=== PATIENT | male | born 1955 | race Hispanic/Latino ===

== ENCOUNTER 2019-01-01 10:13 | Inpatient (IN) | payer MEDICARE, BC ==
[~2019-01-01] VITALS: Ht 167.6 cm; Wt 102.5 kg
--- OUTSIDE RECORDS SUMMARY | 2019-01-01 10:17 | XMS REPORT ---
Author Author [facility] Address Unknown Phone Unavailable Care Team Providers Care Booster Operator Name Role Phone Unavailable Unavailable Payers Payer Name Policy Type Policy Number Effective Date Expiration Date Problems This patient has no known problems. Allergies, Adverse Reactions, Alerts Allergy Name Allergy Type Status Severity Reaction(s) Onset Date Inactive Date Treating Clinician Comments No Known Drug Allergies DA Active U 2018-12-31 00:00:00 No Known Drug Allergies DA Active U 2010-07-12 00:00:00 Medications This patient has no known medications. Results Test Description Test Time Test Comments Text Results Atomic Results Result Comments - XR FLUORO FOR SPINE INJ 2018-12-31 09:00:00 Patient Name: MARCY MO Unit No: [id number] EXAMS: CPT CODE: [id number] XR FLUORO FOR SPINE INJ 57835 LUMBAR TRANSFORAMINAL INJECTION REFERRING PHYSICIAN: PREOPERATIVE DIAGNOSIS: Degenerative Lumbar Disc Disease. POSTOPERATIVE DIAGNOSIS: Bilateral lumbar radiculopathy PROCEDURES PERFORMED 1. Fluoroscopically guided needle localization of the bilateral L4, bilateral L5 spinal nerve/nerves with transforaminal epidural steroid injection/injections. 2. Transforaminal epidurogram/epidurograms at bilateral L4, bilateral L5. FINDINGS: Poor filling bilateral L4, bilateral L5. Concordant provocation left L5 hip, right L4. Pain relief-100%. ANTIBIOTIC: Cefazolin ESTIMATED BLOOD LOSS: Minimal ANESTHESIA: (TIVA )Total intravenous anesthetic (patient intolerant to sedatives and hypnotics) COMPLICATIONS: None DETAILS OF PROCEDURE: After obtaining stable vital signs, informed consent and IV access, with no known contraindications to proceeding, the patient was taken to the fluoroscopy suite and placed in a prone position with all extremities padded and appropriate monitors placed. A sterile prep and drape was performed over the lumbosacral spine. Using fluoroscopic visualization at each level the insertion site was marked for a paravertebral approach to the foramen. Using standard technique, a 25 gauge needle was advanced to the base of the pedicle. In AP view, final positioning was obtained outside the 6 on the clock position on the pedicle. Then, 1 ml of Isovue-300 contrast was injected to produce the epidurograms. No paresthesias were elicited with needle insertion or injection and there were no signs of intravascular or intrathecal uptake. Then, with 1 ml of 4% lidocaine and 10 mg of triamcinolone was injected incrementally with frequent negative aspirations. There were no signs of intravascular or intrathecal uptake. Each subsequent level was done using the same technique and medications. The patient's vital signs remained stable. The patient was taken to the PACU in good condition. at 0900 Reported and signed by: Leo Hidalgo M.D. [facility] NAME: MOMARCY Doty [address] [facility] PHYS: MYRIAM - Leo Hidalgo MD [place], [place] [address] : 1955 AGE: 63 SEX: M LOC: RahulMERY PHONE #: [phone] EXAM DATE: 12/31/2018 [place]: [place] [facility] [place]: [phone] RAD #: D/C DT PAGE 1 Signed Report (CONTINUED) Patient Name: MARCY MO Unit No: [id number] EXAMS: CPT CODE: [id number] XR FLUORO FOR SPINE INJ [id number] <Continued> CC: Landon Au MD; Leon Ball MD Technologist: Aysha Lopez(R) Transcribed D/ (0900) [email or web address] [facility] NAME: MOMARCY Doty [address] [facility] PHYS: Leo Baeza MD [place], [place] [address] : 1955 AGE: 63 SEX: M LOC: MIGUEL PHONE #: [phone] EXAM DATE: 12/31/2018 STATUS: [facility] [place]: [phone] RAD #: D/C DT PAGE 2 Signed Report Patient Name: MARCY MO Unit No: [id number] EXAMS: CPT CODE: [id number] XR FLUORO FOR SPINE INJ [id number] <Continued> Orig Print D/T: S: 12/31/2018 (0904) [facility] NAME: MARCY MO [address] [facility] PHYS: DOCMASON - Doctor,Leo Estes MD [place], [place] [address] : 1955 AGE: 63 SEX: M LOC: MIGUEL PHONE #: [phone] EXAM DATE: 12/31/2018 [place]US: [facility] [place]: [phone] RAD #: D/C DT PAGE 3 Signed Report
--- OUTSIDE RECORDS SUMMARY | 2019-01-01 10:17 | XMS REPORT | Clinical Summary ---
Author Author [facility] Organization [facility] Address Unknown Phone Unavailable Care Team Providers Care Engineering Drafter Name Role Phone Wali Upton MD PCP Unavailable Allergies No Known Allergies Medications End Date Status Medication Sig Dispensed Refills Start Date Active simvastatin (ZOCOR) 20 MG Take 20 mg by 0 tablet mouth nightly. Active lisinopril Take 1 tablet 90 tablet 0 (PRINIVIL,ZESTRIL) 30 mg (30 mg total) 8 tablet by mouth daily. Active sertraline (ZOLOFT) 100 TAKE ONE 90 tablet 0 201 MG tablet TABLET BY 8 MOUTH DAILY 08/16/2019 Active meloxicam (MOBIC) 15 mg Take 1 tablet 30 tablet 0 tablet (15 mg total) 8 by mouth daily. Active tamsulosin (FLOMAX) 0.4 Take 1 90 capsule 3 mg capsule capsule (0.4 8 mg total) by mouth daily. Active traZODone (DESYREL) 100 TAKE ONE 90 tablet 0 201 MG tablet TABLET BY 9 MOUTH EVERY NIGHT AT BEDTIME 03/11/2018 Discontinued lisinopril Take 30 mg by 0 (PRINIVIL,ZESTRIL) 30 mg mouth daily. tablet 03/11/2018 Discontinued sertraline (ZOLOFT) 50 MG Take 50 mg by 0 tablet mouth daily. 03/11/2018 Discontinued traZODone (DESYREL) 50 MG Take 50 mg by 0 tablet mouth nightly. 03/18/2018 Discontinued methylPREDNISolone follow 21 tablet 0 (MEDROL DOSEPAK) 4 mg package 8 tablet directions 04/10/2018 tiZANidine (ZANAFLEX) 4 Take 1 tablet 20 tablet 0 MG tablet (4 mg total) 8 by mouth every 8 (eight) hours as needed for muscle spasms for up to 30 days. 05/20/2018 Discontinued traZODone (DESYREL) 50 MG Take 1 tablet 90 tablet 0 tablet (50 mg total) 8 by mouth nightly. 08/13/2018 Discontinued sertraline (ZOLOFT) 100 Take 1 tablet 90 tablet 0 MG tablet (100 mg 8 total) by mouth daily. 07/13/2018 Discontinued dextromethorphan-guaifene Take 1 tablet 28 each 0 sin (MUCINEX DM) 30-600 by mouth 2 8 mg tablet extended (two) times a release 12 hr day as needed (congestion post nasal drip). 03/28/2018 promethazine-codeine Take 5 mL by 120 mL 0 (PHENERGAN with CODEINE) mouth every 6 8 6.25-10 mg/5 mL syrup (six) hours as needed for cough for up to 10 days. 03/23/2018 azithromycin (ZITHROMAX) Take 2 6 tablet 0 250 MG tablet tablets the 8 first day, then 1 tablet daily for 4 days. 07/13/2018 Discontinued budesonide-formoterol Inhale 2 1 Inhaler 0 (SYMBICORT) 160-4.5 puffs 2 (two) 8 mcg/actuation inhaler times a day. 04/15/2018 clotrimazole-betamethason Apply 30 g 0 e (LOTRISONE) 1-0.05 % topically 2 8 cream (two) times a day for 28 days. 08/11/2018 Discontinued traZODone (DESYREL) 50 MG TAKE ONE 90 tablet 0 tablet TABLET BY 8 MOUTH EVERY NIGHT AT BEDTIME 07/14/2018 Discontinued dextromethorphan-guaifene Take 1 tablet 28 each 0 sin (MUCINEX DM) 30-600 by mouth 2 8 mg tablet extended (two) times a release 12 hr day as needed (congestion post nasal drip). 07/14/2018 Discontinued promethazine-codeine Take 5 mL by 120 mL 0 (PHENERGAN with CODEINE) mouth every 6 8 6.25-10 mg/5 mL syrup (six) hours as needed for cough for up to 10 days. 07/14/2018 Discontinued promethazine-codeine Take 5 mL by 120 mL 0 (PHENERGAN with CODEINE) mouth every 6 8 6.25-10 mg/5 mL syrup (six) hours as needed for cough for up to 10 days. 09/07/2018 Discontinued dextromethorphan-guaifene Take 1 tablet 28 each 0 sin (MUCINEX DM) 30-600 by mouth 2 8 mg tablet extended (two) times a release 12 hr day as needed (congestion post nasal drip). 07/24/2018 promethazine-codeine Take 5 mL by 120 mL 0 (PHENERGAN with CODEINE) mouth every 6 8 6.25-10 mg/5 mL syrup (six) hours as needed for cough for up to 10 days. 09/03/2018 Discontinued traZODone (DESYREL) 50 MG Take 1 tablet 30 tablet 0 tablet (50 mg total) 8 by mouth nightly. 08/22/2018 methylPREDNISolone follow 21 tablet 0 (MEDROL DOSEPAK) 4 mg package 8 tablet directions 09/07/2018 Discontinued traZODone (DESYREL) 50 MG TAKE ONE 30 tablet 0 tablet TABLET BY 8 MOUTH EVERY NIGHT 09/07/2018 Discontinued testosterone cypionate Inject 1 mL 6 mL 0 (DEPOTESTOTERONE (200 mg 8 CYPIONATE) 200 mg/mL total) into injection the shoulder, thigh, or buttocks every 14 (fourteen) days for 30 days. 10/07/2018 testosterone cypionate Inject 1 mL 6 mL 0 (DEPOTESTOTERONE (200 mg 8 CYPIONATE) 200 mg/mL total) into injection the shoulder, thigh, or buttocks every 14 (fourteen) days for 30 days. 12/02/2018 Discontinued traZODone (DESYREL) 100 Take 1 tablet 90 tablet 0 MG tablet (100 mg 8 total) by mouth nightly for 30 days. Status Hospital, Clinic, or Ordered Dose Route Frequency Start End Date Other Facility Date Administered Medication Ended methylPREDNISolone 40 mg IM once 07/13/20 acetate (DEPO-MEDROL) 18 8 injection 40 mgIndications: Acute bronchitis, unspecified organism Ended testosterone cypionate 200 mg IM once 09/10/20 (DEPOTESTOTERONE 18 8 CYPIONATE) injection 200 mgIndications: Low testosterone Active Problems Problem Noted Date Elevated transaminase level 07/13/2018 Low testosterone 07/13/2018 BMI 36.0-36.9,adult 03/11/2018 Essential hypertension 03/11/2018 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 sciatica 03/11/2018 Major depressive disorder with single episode, in partial remission 03/11/2018 Chronic fatigue 03/11/2018 Mixed hyperlipidemia 03/11/2018 Psychophysiological insomnia 03/11/2018 Encounters Care Team Description Date Type Specialty Wali Upton MD 12/02/2018 Refill Family Medicine Wali Upton MD Low testosterone (Primary Dx) 09/10/2018 Clinical Family Medicine Support Wali Upton MD Routine check-up (Primary Dx); Essential hypertension; Testicular hypogonadism; Benign prostatic hyperplasia with urinary frequency; Psychophysiological insomnia; SUSAN (obstructive sleep apnea); Chronic fatigue; Mixed hyperlipidemia; Major depressive disorder with single episode, in partial remission (HCC); Generalized anxiety disorder; Fatty liver; Gastroesophageal reflux disease without esophagitis; BMI 36.0-36.9,adult; 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 sciatica; Migraine without status migrainosus, not intractable, unspecified migraine type; Seasonal allergic rhinitis, unspecified trigger; Colon cancer screening; intermodal customer service (current) use of non-steroidal anti-inflammatories (nsaid) 09/07/2018 Office Visit Family Medicine Divina Joel 09/07/2018 Refill Family Medicine Wali Upton MD 09/03/2018 Refill Family Medicine Gaye Leslie MA 08/17/2018 Telephone Family Medicine Wali Upton MD Mixed hyperlipidemia (Primary Dx); Psychophysiological insomnia; 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 sciatica; Fatty liver; Primary osteoarthritis of both knees; BMI 36.0-36.9,adult; Major depressive disorder with single episode, in partial remission (HCC) 08/16/2018 Office Visit Family Medicine Wali Upton MD 08/13/2018 Refill [facility] Medicine Gaye Leslie MA 08/13/2018 Telephone [facility] Wali Gutierrez MD 08/10/2018 Refill [facility] Medicine Gaye Leslie MA 07/19/2018 Telephone [facility] Medicine Wali Upton MD Elevated transaminase level 07/16/2018 Hospital Radiology Encounter Wali Upton MD Acute bronchitis, unspecified organism (Primary Dx); Pharyngitis, unspecified etiology; Viral upper respiratory tract infection; Essential hypertension; Mixed hyperlipidemia; Low testosterone; Elevated transaminase level 07/13/2018 Office Visit Family Wali Gutierrez MD 07/13/2018 Telephone [facility] Medicine Wali Upton MD 05/20/2018 Refill [facility] Gaye Leslie, MICHAEL 03/19/2018 Telephone [facility] Medicine Wali Upton MD Acute bronchitis, unspecified organism (Primary Dx); Generalized weakness; Arthralgia, unspecified joint; Balantidiasis; Viral upper respiratory tract infection; Pharyngitis, unspecified etiology 03/18/2018 Office Visit Family Medicine Wali Upton MD Elevated transaminase level (Primary Dx); Mixed hyperlipidemia; Low testosterone 03/18/2018 Orders Only Family Medicine Wali Upton MD Essential hypertension (Primary Dx); 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 sciatica; Major depressive disorder with single episode, in partial remission; Chronic fatigue; Mixed hyperlipidemia; Psychophysiological insomnia; Nocturia; BMI 37.0-37.9, adult 03/11/2018 Office Visit Family Medicine after 12/31/2017 Social History Date Tobacco Use Types Packs/Day Years Used Current Every Day Smoker Cigarettes 0.5 40 Smokeless Tobacco: Never Used Tobacco Cessation: Ready to Quit: Yes; Counseling Given: Yes Comments: 2 cigarettes a day for past 5 yrs Alcohol Use Drinks/Week oz/Week Comments No quit 5 yrs ago Sex Assigned at Date Recorded Not on file Industry Job Start Date Occupation Not on file Not on file Not on file Travel End Travel History Travel Start No recent travel history available. Last Filed Vital Signs Time Taken Vital Sign Reading 09/07/2018 8:47 AM SEPARATOR TENDER Blood Pressure 126/64 09/07/2018 8:47 AM SEPARATOR TENDER Pulse 65 09/07/2018 8:47 AM SEPARATOR TENDER Temperature 36.3 C (97.3 F) 08/16/2018 10:34 AM SEPARATOR TENDER Respiratory Rate 20 09/07/2018 8:47 AM SEPARATOR TENDER Oxygen Saturation 95% - Inhaled Oxygen - Concentration 09/07/2018 8:47 AM SEPARATOR TENDER Weight 102 kg (224 lb 12.8 oz) 08/16/2018 10:34 AM SEPARATOR TENDER Height 167.6 cm (5' 6") 09/07/2018 8:47 AM SEPARATOR TENDER Body Mass Index 36.28 Plan of Treatment Health Maintenance Due Date Last Done Comments COLON CANCER SCREENING 2003 SHINGLES VACCINES (#1) 2003 INFLUENZA VACCINE 05/05/2018 65+ PNEUMOCOCCAL VACCINE 2018 (1 of 2 - PCV13) PNEUMOCOCCAL 2018 POLYSACCHARIDE VACCINE AGE 65 AND OVER Procedures Comments Procedure Name Priority Date/Time Associated Diagnosis ECG 12-LEAD Routine 09/07/2018 Essential hypertension 9:31 AM SEPARATOR TENDER GGT Routine 08/12/2018 Elevated transaminase 8:39 AM SEPARATOR TENDER level HEPATIC FUNCTION PANEL Routine 08/12/2018 Elevated transaminase 8:39 AM SEPARATOR TENDER level LIPID PANEL Routine 08/12/2018 Mixed hyperlipidemia 8:39 AM SEPARATOR TENDER ESTRADIOL LEVEL Routine 08/12/2018 Low testosterone 8:36 AM SEPARATOR TENDER FOLLICLE STIMULATING Routine 08/12/2018 Low testosterone HORMONE 8:36 AM SEPARATOR TENDER SEX HORMONE BINDING Routine 08/12/2018 Low testosterone GLOBULIN 8:36 AM SEPARATOR TENDER TESTOSTERONE LEVEL, FREE Routine 08/12/2018 Low testosterone AND TOTAL, MALE 8:36 AM SEPARATOR TENDER LUTEINIZING HORMONE Routine 08/12/2018 Low testosterone 8:36 AM SEPARATOR TENDER PROLACTIN LEVEL Routine 08/12/2018 Low testosterone 8:36 AM SEPARATOR TENDER US HEPATIC Routine 07/16/2018 Elevated transaminase 10:10 AM CDT level POCT INFLUENZA A/B Routine 03/18/2018 Acute bronchitis, 12:09 PM CDT unspecified organism CREATINE KINASE, TOTAL Routine 03/11/2018 Mixed hyperlipidemia (CPK) 12:43 PM CDT T4, FREE Routine 03/11/2018 Chronic fatigue 12:43 PM CDT TESTOSTERONE LEVEL, FREE Routine 03/11/2018 Chronic fatigue AND TOTAL, MALE 12:43 PM CDT URINALYSIS, COMPLETE, Routine 03/11/2018 Nocturia WITH REFLEX TO CULTURE 12:43 PM CDT THYROID STIMULATING Routine 03/11/2018 Chronic fatigue HORMONE 12:43 PM CDT PROSTATE SPECIFIC ANTIGEN Routine 03/11/2018 Nocturia 12:43 PM CDT LIPID PANEL Routine 03/11/2018 Mixed hyperlipidemia 12:43 PM CDT COMPREHENSIVE METABOLIC Routine 03/11/2018 Essential hypertension PANEL 12:43 PM CDT CBC WITH PLATELET AND Routine 03/11/2018 Chronic fatigue DIFFERENTIAL 12:43 PM CDT after 12/31/2017 Results * ECG 12 lead (09/07/2018 9:31 AM SEPARATOR TENDER) Ventricular rate 56 [facility] Atrial rate 56 [facility] [place] interval 136 [facility] QRSD interval 124 [facility] QT interval 438 [facility] QTC interval 422 [facility] P axis 1 -10 [facility] QRS axis 1 -72 [facility] T wave axis 16 [facility] EKG impression Sinus bradycardia-Left axis [facility] deviation-Nonspecific intraventricular conduction delay-Abnormal ECG-No previous ECGs available- Narrative Performed At Performing Organization Address City/State/Zipcode Phone Number [facility] M[facility] [address] [place] [address] * GGT (08/12/2018 8:39 AM SEPARATOR TENDER) GGT 44 3 - 70 U/L [employer] [place] Specimen Blood Narrative Performed At FASTING:YES [facility]ST FASTING: YES Resulting Agency Comment Performing Organization Information: Site ID: [facility] Name: [facility] Address: [address] [place] [phone] Director: Yazmin Flores Performing Organization Address [facility] Phone Number [facility] [address] [address] * Hepatic function panel (08/12/2018 8:39 AM SEPARATOR TENDER) Protein 6.2 6.1 - 8.1 g/dL [employer] [place] Albumin, S 3.6 3.6 - 5.1 g/dL [employer] [place] Globulin, total 2.6 1.9 - 3.7 g/dL (calc) [employer] [place] Albumin/globulin ratio 1.4 1.0 - 2.5 (calc) [employer] [place] Total bilirubin 0.4 0.2 - 1.2 mg/dL [employer] [place] Bilirubin direct 0.1 < OR=0.2 mg/dL [employer] [place] Bilirubin, indirect 0.3 0.2 - 1.2 mg/dL (calc) [employer] [place] Alkaline phosphatase 78 40 - 115 U/L [employer] [place] AST 34 10 - 35 U/L [employer] [place] ALT 66 (H) 9 - 46 U/L [employer] [place] Narrative Performed At FASTING:YES [facility]ST FASTING: YES Resulting Agency Comment Performing Organization Information: Site ID: [id number] Name: [facility] Address: [address] [place] [phone] Director: Yazmin Flores Performing Organization Address [facility] Phone Number [facility] [address] [address] * Lipid panel (08/12/2018 8:39 AM SEPARATOR TENDER) Only the most recent of 2 results within the time period is included. Cholesterol, total 167 <200 mg/dL [employer] [place] HDL cholesterol 40 (L) >40 mg/dL [employer] [place] Triglycerides 112 <150 mg/dL [employer] [place] LDL cholesterol 106 (H) mg/dL (calc) [employer] calculated Comment: [place] Reference range: <100 Desirable range <100 mg/dL for primary prevention; <70 mg/dL for patients with CHD or diabetic patients with > or=2 CHD risk factors. LDL-C is now calculated using the Rod calculation, which is a validated novel method providing better accuracy than the Friedewald equation in the estimation of LDL-C. Jomar SS et al. ALEC. 2013;310(75): 6682-2143 (http://education.STYLHUNT/faq/YMH750) Cholesterol/HDL ratio 4.2 <5.0 (calc) [employer] Non-HDL cholesterol 127 <130 mg/dL (calc) [employer] Comment: [place] For patients with diabetes plus 1 major ASCVD risk factor, treating to a non-HDL-C goal of <100 mg/dL (LDL-C of <70 mg/dL) is considered a therapeutic option. Narrative Performed At FASTING:YES QUEST FASTING: YES Resulting Agency Comment Performing Organization Information: Site ID: [facility]A Name: [id number] Address: [address] [place] [phone] Director: Yazmin Flores Performing Organization Address [facility] [place] [address] * Human sex hormone binding globulin (08/12/2018 8:36 AM SEPARATOR TENDER) Sex hormone binding 19 (L) 22 - 77 nmol/L [employer] [facility] Specimen Blood Narrative Performed At FASTING:YES QUEST FASTING: YES Resulting Agency Comment Performing Organization Information: Site ID: [facility]GA Name: [id number] Address: [address] [place] [phone] Director: Yazmin Flores Performing Organization Address [facility] [place] [address] * Prolactin level (08/12/2018 8:36 AM SEPARATOR TENDER) Prolactin 8.1 2.0 - 18.0 ng/mL [employer] [place] Specimen Blood Narrative Performed At FASTING:YES QUEST FASTING: YES Resulting Agency Comment Performing Organization Information: Site ID: [facility] Name: [facility] Address: [address] [place] [phone] Director: Yazmin Flores Performing Organization Address [facility] Phone Number [facility] [place] [address] * Estradiol level (08/12/2018 8:36 AM SEPARATOR TENDER) Estradiol 22 < OR=39 pg/mL [employer] Comment: [place] Reference range established on post-pubertal patient population. No pre-pubertal reference range established using this assay. For any patients for whom low Estradiol levels are anticipated (e.g. males, pre-pubertal children and hypogonadal/post-menopausal females), the [employer] [facility][1] Estradiol, Ultrasensitive, LCMSMS assay is recommended (order code 23168). Please note: patients being treated with the drug fulvestrant (Faslodex(R)) have demonstrated significant interference in immunoassay methods for estradiol measurement. The cross reactivity could lead to falsely elevated estradiol test results leading to an inappropriate clinical assessment of estrogen status. [employer] order code [id number], Ultrasensitive LC/MS/MS demonstrates negligible cross reactivity with fulvestrant. Specimen Blood Narrative Performed At FASTING:YES QUEST FASTING: YES Resulting Agency Comment Performing Organization Information: Site ID: RGA Name: [facility] Address: [address] [place] [phone] Director: Yazmin Flores Performing Organization Address City/State/Zipcode Phone Number [facility] [employer] [place] [phone] * Testosterone level, free and total, male (08/12/2018 8:36 AM SEPARATOR TENDER) Only the most recent of 2 results within the time period is included. Testosterone, total, 153 (L) 250 - 1,100 ng/dL [employer] lc/ms/ms Comment: CAMERON LUCAS Men with clinically significant hypogonadal symptoms and testosterone values repeatedly in the range of the 200-300 ng/dL or less, may benefit from testosterone treatment after adequate risk and benefits counseling. Testosterone, free 43.5 35.0 - 155.0 pg/mL [employer] Comment: [place] LUC[place] Data from J Clin Invest 1974:53:819-828 and J Clin Endocrinol Metab 1973;36:5795-9379. Men with clinically significant hypogonadal symptoms and testosterone values repeatedly in the range of the 200-300 ng/dL or less, may benefit from testosterone treatment after adequate risk and benefits counseling. For additional information, please refer to http://education.Chain.com/faq/ITN873 (This link is being provided for informational/ educational purposes only.) This test was developed and its analytical performance characteristics have been determined by [facility]. It has not been cleared or approved by the US Food and Drug Administration. This assay has been validated pursuant to the CLIA regulations and is used for clinical purposes. Specimen Blood Narrative Performed At FASTING:YES QUEST FASTING: YES Resulting Agency Comment Performing Organization Information: Site ID: [id number] [facility] Address: [address] [place] [phone] Director: Diego Townsend M.D., Ph.D Performing Organization Address City/[facility] Phone Number [facility] [address] [address] [place] * Luteinizing hormone (08/12/2018 8:36 AM SEPARATOR TENDER) Luteinizing hormone 4.5 1.6 - 15.2 mIU/mL [employer] [place] Specimen Blood Narrative Performed At FASTING:YES QUEST FASTING: YES Resulting Agency Comment Performing Organization Information: Site ID: RGA Name: [facility] Address: [address] [place] [phone] Director: Yazmin Flores Performing Organization Address [facility] [place] [address] * Follicle stimulating hormone (08/12/2018 8:36 AM SEPARATOR TENDER) Follicle stimulating 5.2 1.6 - 8.0 mIU/mL [employer] [facility] Specimen Blood Narrative Performed At FASTING:YES QUEST FASTING: YES Resulting Agency Comment Performing Organization Information: Site ID: RGA Name: [facility] Address: [address] [place] [phone] Director: Yazmin Flores Performing Organization Address [facility] [place] [address] * US Hepatic (07/16/2018 10:10 AM CDT) Narrative Performed At Hepatic ultrasound, 07/16/2018 [facility] Clinical history: Elevated transaminase levels. Comparison: None Technique: Grayscale and color Doppler ultrasound right upper quadrant. Findings: Liver: Right liver span: 15 cm. Increased parenchymal echogenicity with a smooth liver margin. Portal vein diameter: 1 cm; normal flow direction. Gallbladder: Normal. Wall thickness 0.2 cm. Common bile duct diameter: 0.3 cm. Impression: Echogenic liver consistent with steatosis. [facility]-[id number] Procedure Note Hm Interface, Radiology Results Incoming - 07/16/2018 10:25 AM CDT Hepatic ultrasound, 07/16/2018 Clinical history: Elevated transaminase levels. Comparison: None Technique: Grayscale and color Doppler ultrasound right upper quadrant. Findings: Liver: Right liver span: 15 cm. Increased parenchymal echogenicity with a smooth liver margin. Portal vein diameter: 1 cm; normal flow direction. Gallbladder: Normal. Wall thickness 0.2 cm. Common bile duct diameter: 0.3 cm. Impression: Echogenic liver consistent with steatosis. [facility]-[id number] Performing Organization Address City/State/Zipcode Phone Number [facility] [phone] [place] [address] * POC Influenza A/B (03/18/2018 12:09 PM CDT) Rapid Influenza A Ag neg Rapid Influenza B Ag neg Specimen Nasopharyngeal * URINALYSIS, COMPLETE, WITH REFLEX TO CULTURE (03/11/2018 12:43 PM CDT) Color, UA DARK YELLOW YELLOW [employer] [place] Appearance CLEAR CLEAR [employer] [place] Specific gravity, urine > OR=1.030 1.001 - 1.035 [employer] [place] pH, urine 5.5 5.0 - 8.0 [facility] [place] Glucose, urine NEGATIVE NEGATIVE [facility] [place] Bilirubin, UA NEGATIVE NEGATIVE [facility] [place] Ketones, UA NEGATIVE NEGATIVE [facility] [place] Occult blood, urine NEGATIVE NEGATIVE [facility] [place] Protein, UA NEGATIVE NEGATIVE [facility] [place] Nitrite, UA NEGATIVE NEGATIVE [facility] [place] Leukocyte esterase, UA NEGATIVE NEGATIVE [facility] [place] WBC, UA NONE SEEN < OR=5 /HPF [facility] [place] RBC, UA NONE SEEN < OR=2 /HPF [facility] [place] Squamous epithelial NONE SEEN < OR=5 /HPF [facility] cells, UA [place] Bacteria, UA NONE SEEN NONE SEEN /HPF [facility] [place] Hyaline casts, UA NONE SEEN NONE SEEN /LPF [employer] [place] Reflex NO CULTURE INDICATED [employer] [place] Narrative Performed At FASTING:YES [facility]ST FASTING: YES Resulting Agency Comment Performing Organization Information: Site ID: [facility]GA Name: [facility] Address: [address] [place] [phone] Director: Yazmin Flores Performing Organization Address City/State/Zipcode Phone Number [facility] [employer] [place] [address] * CBC with platelet and differential (03/11/2018 12:43 PM CDT) WBC 6.9 3.8 - 10.8 Thousand/uL [employer] [place] RBC 4.94 4.20 - 5.80 Million/uL [employer] [place] HGB 14.4 13.2 - 17.1 g/dL [employer] [place] HCT 43.1 38.5 - 50.0 % [employer] [place] MCV 87.2 80.0 - 100.0 fL [employer] [place] MCH 29.1 27.0 - 33.0 pg [employer] [place] MCHC 33.4 32.0 - 36.0 g/dL [employer] [place] RDW 13.7 11.0 - 15.0 % [employer] [place] Platelet count 179 140 - 400 Thousand/uL [employer] [place] MPV 12.2 7.5 - 12.5 fL [employer] [place] Neutrophils, absolute 3,222 1,500 - 7,800 cells/uL [employer] [place] Lymphocytes, absolute 3,002 850 - 3,900 cells/uL [employer] [place] Monocytes, absolute 497 200 - 950 cells/uL [employer] [place] Eosinophils, absolute 138 15 - 500 cells/uL [employer] [place] Basophils, absolute 41 0 - 200 cells/uL [employer] [place] Neutrophils 46.7 % [employer] [place] Lymphocytes 43.5 % [employer] [place] Monocytes 7.2 % [employer] [place] Eosinophils 2.0 % [employer] [place] Basophils + RC 0.6 % [employer] [place] Narrative Performed At FASTING:YES [facility] FASTING: YES Resulting Agency Comment Performing Organization Information: Site ID: [id number] Name: [id number] Address: [address] [place] [phone] Director: Yazmin Flores Performing Organization Address City/State/Zipcode Phone Number [facility] [address] [address] * Thyroid stimulating hormone (03/11/2018 12:43 PM CDT) TSH 0.74 0.40 - 4.50 mIU/L [employer] [place] Narrative Performed At FASTING:YES [facility] FASTING: YES Resulting Agency Comment Performing Organization Information: Site ID: [id number] Name: [id number] Address: [address] [place] [phone] Director: Yazmin Flores Performing Organization Address [facility] Phone Number [facility] [place] [address] * T4, free (03/11/2018 12:43 PM CDT) T4, free 1.0 0.8 - 1.8 ng/dL [employer] [place] Narrative Performed At FASTING:YES [facility] FASTING: YES Resulting Agency Comment Performing Organization Information: Site ID: [id number] Name: [facility] Address: [address] [place] [phone] Director: Yazmin Flores Performing Organization Address [facility] [place] [address] * Prostate specific antigen (03/11/2018 12:43 PM CDT) PSA 0.8 < OR=4.0 ng/mL [employer] Comment: [place] The total PSA value from this assay system is standardized against the WHO standard. The test result will be approximately 20% lower when compared to the equimolar-standardized total PSA (Sally Domingo). Comparison of serial PSA results should be interpreted with this fact in mind. This test was performed using the Siemens chemiluminescent method. Values obtained from different assay methods cannot be used interchangeably. PSA levels, regardless of value, should not be interpreted as absolute evidence of the presence or absence of disease. Narrative Performed At FASTING:YES [facility] FASTING: YES Resulting Agency Comment Performing Organization Information: Site ID: [id number] Name: [id number] Address: [address] [place] [phone] Director: Yazmin Flores Performing Organization Address [facility] [place] [address] * Creatine kinase, total (CPK) (03/11/2018 12:43 PM CDT) Creatine kinase 121 44 - 196 U/L [employer] [place] Narrative Performed At FASTING:YES [facility] FASTING: YES Resulting Agency Comment Performing Organization Information: Site ID: [id number] Name: [id number] Address: [address] [place] [phone] Director: Yazmin Flores Performing Organization Address [facility] Phone Number [facility] [place] [address] [place] [address] * Comprehensive metabolic panel (03/11/2018 12:43 PM CDT) Glucose 99 65 - 99 mg/dL [employer] Comment: [place] Fasting reference interval BUN, whole blood 24 7 - 25 mg/dL [employer] [place] Creatinine 0.91 0.70 - 1.25 mg/dL [employer] Comment: [place] For patients >49 years of age, the reference limit for Creatinine is approximately 13% higher for people identified as -Z[place]ian. EGFR Non-Afr. [place]ian 89 > OR=60 mL/min/1.73m2 [employer] [place] EGFR 103 > OR=60 mL/min/1.73m2 [employer] [place] BUN/creatinine ratio NOT APPLICABLE 6 - 22 (calc) [employer] [place] Sodium 142 135 - 146 mmol/L [employer] [place] Potassium 4.6 3.5 - 5.3 mmol/L [employer] [place] Chloride 104 98 - 110 mmol/L [employer] [place] CO2 29 20 - 31 mmol/L [employer] [place] Calcium 9.1 8.6 - 10.3 mg/dL [employer] [place] Protein 6.8 6.1 - 8.1 g/dL [employer] [place] Albumin, S 3.9 3.6 - 5.1 g/dL [employer] [place] Globulin, total 2.9 1.9 - 3.7 g/dL (calc) [employer] [place] Albumin/globulin ratio 1.3 1.0 - 2.5 (calc) [employer] [place] Total bilirubin 0.4 0.2 - 1.2 mg/dL [employer] [place] Alkaline phosphatase 68 40 - 115 U/L [employer] [place] AST 43 (H) 10 - 35 U/L [employer] [place] ALT 75 (H) 9 - 46 U/L [employer] [place] Narrative Performed At FASTING:YES [facility] FASTING: YES Resulting Agency Comment Performing Organization Information: Site ID: [id number] Name: [id number] Address: [address] [place] [id number] Director: Yazmin Flores Performing Organization Address City/[facility]/Zipcode Phone Number [facility] [address] [address] after 12/31/2017 Insurance Payer Benefit Subscriber ID Type Phone Address Plan / Group MEDICARE MEDICARE xxxxxxxxxxx Medicare DICK[place], [place] PART A AND B BCBS BCBS xxxxxxxxxxxx PPO CHOICE PPO/HAL SOTO PPO Advance Directives Patient has advance care planning documents on file. For more information, oh fernandes contact: Sunny Dias [address] [place] [address]
--- OUTSIDE RECORDS SUMMARY | 2019-01-01 10:17 | XMS REPORT | Encounter Summary ---
Author Organization Unknown Address [address] [place] [address] Phone [phone] Care Team Providers Care Fish Trapper Name Role Phone Dr. Landon Au 3 [phone] Luther Goddard MD 3 [phone] Reason for Visit Insomnia; Hyperlipidemia Instructions 1. Body mass index 30+ - obesity body mass index: care instructions learning about healthy weight 2. Primary insomnia Ambien 10 mg tablet 3. Hyperlipidemia Zocor 20 mg tablet CMP, serum or plasma lipid panel, serum 4. Screening for malignant neoplasm of colon fecal occult blood, stool 5. Immunization Pneumovax 23 25 mcg/0.5 mL injection syringe Fluzone High-Dose 0200-6456 (PF) 180 mcg/0.5 mL intramuscular syringe 6. Depression screening positive learning about depression learning about mood disorders 7. Nicotine dependence stopping smoking: care instructions advised to quit smoking deciding about using medicines to quit smoking 8. At risk for falls preventing falls: care instructions 9. Essential hypertension 10. Anxiety 11. Benign prostatic hyperplasia 12. Gastroesophageal reflux disease Discussion Note: None recorded. Plan of Care Patient Instructions meds as directed <wgt >exercise Reminders Provider Appointments Return to Office on or around 02/20/2019 Landon Au MD Lab CMP, Serum or Plasma 11/24/2018 [facility] Laboratory Lipid Panel, Serum 11/24/2018 [facility] Fecal Occult Blood, Stool 11/24/2018 [facility] Referral None recorded. Procedures None recorded. Surgeries None recorded. Imaging None recorded. Medications Name Start Date Ambien 10 mg tablet Take 1 tablet every day by oral route. rx called into pharmacy lisinopril 20 mg-hydrochlorothiazide 12.5 mg tablet Take 1 tablet every day by oral route. Prevacid 30 mg capsule,delayed release Take 1 capsule every day by oral route. tamsulosin 0.4 mg capsule Take 1 capsule every day by oral route. Zocor 20 mg tablet Take 1 tablet every day by oral route. Zoloft 50 mg tablet Take 1 tablet every day by oral route. Medications Administered None recorded. Vitals Height Weight BMI Blood Pressure 5 ft 6 in 223 lbs 36 kg/m2 138/80 mm[Hg] Lab Results None recorded. Allergies Code Code System Name Reaction Severity Status Onset NKDA Problems Name Status Onset Date Source Hyperlipidemia Active Depressive Disorder Active Insomnia Active Headache Active Procedures Date Name Performed by 10/05/2016 Orthopedic Surgery Information not available Knee Surgery Information not available Shoulder Surgery Procedure Information not available Vaccine List Vaccine Type influenza, high dose seasonal 11/24/20180.5 mL pneumococcal polysaccharide PPV23 11/24/20180.5 mL Social History Smoking Status Light Tobacco Smoker (10/08 PPD) Past Encounters 11/24/2018 Body Mass Index 30+ - Obesity; Primary Insomnia; Hyperlipidemia; Screening for Malignant Neoplasm of Colon; Immunization; Depression Screening Positive; Nicotine Dependence; At Risk for Falls; Essential Hypertension; Anxiety; Benign Prostatic Hyperplasia; Gastroesophageal Reflux Disease Landon Au MD: [address] [place] [address], Ph. History of Present Illness Note:f/u #1 insomnia -requesting resumption zolpidem,last prescribed 2 yrs ago as alternative meds ineffective<div>#2 hld -out meds 1 week,none compliant diet/exercise</div><div>currently taking meds for anxiety/htn/bph/gerd,d/c im testosterone,following initial dose</div> Review of Systems:ROS as noted in the HPI Review of Systems None recorded. Physical Exam Cardiology Exam Reported By: Patient Constitutional: General Appearance: well-developed, appears stated age, obese. Level of Distress: comfortable Psychiatric: Mental Status: alert, normal affect. Orientation: oriented to time, place, and person. Insight: good judgment Eyes: Lids and Conjunctivae: non-injected, anicteric, no discharge, no pallor, no arcus senilis, no xanthelasma. Pupils: PERRLA Neck: Neck: supple, trachea midline, no masses, FROM. Carotid Arteries: bilateral normal upstroke, no bruits, no thrills. Cervical Lymph Nodes: non tender, not enlarged. Thyroid: not enlarged, non tender, no nodules Lungs: Respiratory Effort: unlabored. Chest Exam: normal curvature, no thoracic deformity, no chest wall tenderness. Percussion: resonant. Auscultation: clear, no wheezing, no rales, no rhonchi Cardiovascular: Precordial Exam: non displaced focal PMI, no heaves, no precordial thrills. Rate And Rhythm: regular. Heart Sounds: normal S1, physiologically split S2, no rub, no gallop, no click. Systolic Murmur: not heard. Diastolic Murmur: not heard. Extremities: no cyanosis, no edema, no peripheral signs of emboli Skin: Inspection and Palpation: warm and dry. Nails: no clubbing
--- OUTSIDE RECORDS SUMMARY | 2019-01-01 10:17 | XMS REPORT | Encounter Summary ---
Author Organization Unknown Address [address] [place] [address] Phone [phone] Care Team Providers Care Road Maker Name Role Phone Dr. Landon Au 3 [phone] Luther Goddard MD 3 [phone] Reason for Visit lab follow-up Instructions 1. Hyperglycemia HbA1c (hemoglobin A1c), blood 2. Screening for malignant neoplasm of colon colonoscopy referral - PLEASE CALL PATIENT AND SCHEDULE HIM AN APPOINTMENT. PLEASE FAX NOTES TO [phone]. 3. Body mass index 30+ - obesity body mass index: care instructions learning about healthy weight 4. Nicotine dependence stopping smoking: care instructions 5. Benign essential hypertension 6. Hyperlipidemia high cholesterol: care instructions Discussion Note await lab may need metformin rx Plan of Care Patient Instructions continue all meds <wgt >exercise,d/c smoking Reminders Provider Appointments Return to Office on or around 02/20/2019 Landon Au MD Lab HbA1C (Hemoglobin a1C), Blood 12/01/2018 [facility] Laboratory Referral Colonoscopy Referral 12/01/2018 Andrzej Gale Procedures None recorded. Surgeries None recorded. Imaging [...] 1 capsule every day by oral route. Zoloft 50 mg tablet Take 1 tablet every day by oral route. Medications Administered None recorded. Vitals Height Weight BMI Blood Pressure 5 ft 6 in 222 lbs 35.8 kg/m2 134/86 mm[Hg] Lab Results Date Name Specimen Result Interpretation Description Value Range Status Address 11/24/2018 CMP, Serum or Plasma High Alt 61 U/L 0-55 U/L Final [facility] Ast 36 U/L 5-34 U/L Final [facility] Bun 13.8 mg/dL 8.4-25.7 mg/dL Final [facility] Alk Phos 77 unit/L 40-150 unit/L Final [facility] [facility] High Glucose 298 mg/dL 70-99 mg/dL Final [facility] Albumin 3.6 g/dL 3.5-5.0 g/dL Final [facility] Creatinine 0.91 mg/dL 0.72-1.25 mg/dL Final [facility] Laboratory: [address] [place] [address] eGFR Non- >60 mL/min/1.73m2 Final [facility] Laboratory: [address] Total Bilirubin 0.5 mg/dL 0.2-1.2 mg/dL Final [facility] Laboratory: [address] eGFR - >60 mL/min/1.73m2 Final [facility] Sodium 140 mEq/L 136-145 mEq/L Final [facility] Laboratory: [address] [place] [address] Potassium 4.6 mEq/L 3.5-5.1 mEq/L Final [facility] Laboratory: [address] Chloride 103 mmol/L 98-107 mmol/L Final [facility] Laboratory: [address] Total Protein 6.8 g/dL 6.4-8.3 g/dL Final [facility] Calcium 9.2 mg/dL 8.8-10.0 mg/dL Final [facility] Laboratory: [address] Co2 28.6 mmol/L 23.0-31.0 mmol/L Final [facility]: [address] Anion Gap 8 calc Final [facility] [facility] 11/24/2018 Lipid Panel, Serum Low Hdl 34 mg/dL 40-60 mg/dL Final [facility] Laboratory: [address] [place] [address], [place] High Triglyceride 174 mg/dL 0-149 mg/dL Final [facility] Laboratory: [address] [place] [address], [place] VLDL Calc. 35 mg/dL Final [facility]: [address] [place] [address], [place] cholesterol/HDL Ratio 5.7 mg/dL Final [facility] Laboratory: [address] [place] [address], [place] non-HDL Cholesterol Calc. 159 mg/dL 0-160 mg/dL Final [facility]: [address] [place] [address], [place] Cholesterol 193 mg/dL 0-199 mg/dL Final [facility]: [address] [place] [address], [place] LDL Calc. 124 mg/dL 0-130 mg/dL Final [facility]: [address] [place] [address], [place] Allergies Code Code System Name Reaction Severity [...] Social History Smoking Status Light Tobacco Smoker (/ PPD) Past Encounters 12/01/2018 Hyperglycemia; Screening for Malignant Neoplasm of Colon; Body Mass Index 30+ - Obesity; Nicotine Dependence; Benign Essential Hypertension; Hyperlipidemia Landon Au MD: [address] [place] [phone], Ph. 11/24/2018 Body Mass Index 30+ - Obesity; Primary Insomnia; Hyperlipidemia; Screening for Malignant Neoplasm of Colon; Immunization; Depression Screening Positive; Nicotine Dependence; At Risk for Falls; Essential Hypertension; Anxiety; Benign Prostatic Hyperplasia; Gastroesophageal Reflux Disease Landon Au MD: [address] [place] [phone], Ph. History of Present Illness Note:lab f/u significantly > glucose,minor > lft's -known fatty liver disease,none drinker ,smokes 4-5 cigs/d Review of Systems:ROS as noted in the [...]
[2019-01-01] MEDS ORDERED: ACETAMINOPHEN 325 MG TAB PO ONE (10:45)
--- NOTE | 2019-01-01 11:37 | Diagnostic Imaging Report ---
Exam: Head CT without contrast History: Headache, recent spinal injection Comparison studies: None Technique: Axial images were obtained from the skull base to the vertex. Coronal and sagittal images reconstructed from the axial data. Dose modulation, iterative reconstruction, and/or weight based adjustment of the mA/kV was utilized to reduce the radiation dose to as low as reasonably achievable. Radiation dose: Total DLP: 969 mGy*cm. Estimated effective dose: DLP x 0.015 Intravenous contrast: None Findings: Scalp: Nonspecific focal soft tissue thickening or possibly scarring in the right inferior paramedian occipital scalp. Bones: No fractures, blastic or lytic lesions. Brain sulci: Appropriate for age. Ventricles: Normal in size and configuration. No hydrocephalus. Extra-axial spaces: No masses, no fluid collection. Parenchyma: No masses, acute hemorrhage, acute or chronic vascular insults. Sellar/suprasellar region: No abnormalities. Craniocervical junction: Patent foramen magnum. No Chiari one malformation. Incidental findings: Atherosclerotic calcifications in the carotid siphons. IMPRESSION: No acute intracranial abnormalities. Signed by: Dr. Celestino Montiel M.D. on 01/01/2019 11:33 AM
[2019-01-01] MEDS: SODIUM CHLORIDE 0.9% 1000ML 1,000 ML IV SCH ×6 (12:13→23:59)
[2019-01-01] MEDS ORDERED: KETOROLAC TROMETHAMINE 30 MG/ML VIAL IV STA (12:25)
--- NOTE | 2019-01-01 12:59 | NUR ---
NOTIFIED DR COBURN GLUCOSE 397 AFTER X1 1000ML BOLUS. NO INSULIN ORDERED AT THIS TIME PER DR COBURN, STATES THAT THE PATIENT IS A NEW ONSET DIABETIC AND INSULIN NAIVE AND DOES NOT WANT TO BRING THE GLUCOSE LEVEL DOWN TO QUICKLY.
[2019-01-01] MEDS ORDERED: ONDANSETRON HCL INJ 2MG/ML 2ML 2 MG/ML VIAL IV PRN ×2 (13:15→16:15)
--- OUTSIDE RECORDS SUMMARY | 2019-01-01 13:23 | XMS REPORT | Clinical Summary ---
Author Author Sunny [facility] Organization [facility] Address Unknown Phone Unavailable Care Team Providers Care Breeding Technician Name Role Phone Wali Upton MD PCP [...] allergic rhinitis, unspecified trigger; Colon cancer screening; intermediate designer (current) use of non-steroidal anti-inflammatories (nsaid) 09/07/2018 [...] Family Medicine Wali Upton MD 08/13/2018 Refill [facility] Medicine Gaye Leslie MA 08/13/2018 Telephone [facility] Wali Gutierrez MD 08/10/2018 Refill [facility] Medicine Gaye Leslie MA 07/19/2018 Telephone [facility] Medicine Wali Upton MD Elevated transaminase level 07/16/2018 Hospital Radiology Encounter Wali Upton MD Acute bronchitis, unspecified organism (Primary Dx); Pharyngitis, unspecified etiology; Viral upper respiratory tract infection; Essential hypertension; Mixed hyperlipidemia; Low testosterone; Elevated transaminase level 07/13/2018 Office Visit Family Wali Gutierrez MD 07/13/2018 Telephone [facility] Medicine Wali Upton MD 05/20/2018 Refill [facility] Gaye Leslie, MICHAEL 03/19/2018 Telephone [facility] Medicine Wali Upton MD Acute bronchitis, [...] Taken Vital Sign Reading 09/07/2018 8:47 AM INSTRUCTIONAL DESIGN CONSULTANT Blood Pressure 126/64 09/07/2018 8:47 AM INSTRUCTIONAL DESIGN CONSULTANT Pulse 65 09/07/2018 8:47 AM INSTRUCTIONAL DESIGN CONSULTANT Temperature 36.3 C (97.3 F) 08/16/2018 10:34 AM INSTRUCTIONAL DESIGN CONSULTANT Respiratory Rate 20 09/07/2018 8:47 AM INSTRUCTIONAL DESIGN CONSULTANT Oxygen Saturation 95% - Inhaled Oxygen - Concentration 09/07/2018 8:47 AM INSTRUCTIONAL DESIGN CONSULTANT Weight 102 kg (224 lb 12.8 oz) 08/16/2018 10:34 AM INSTRUCTIONAL DESIGN CONSULTANT Height 167.6 cm (5' 6") 09/07/2018 8:47 AM INSTRUCTIONAL DESIGN CONSULTANT Body Mass Index 36.28 Plan of Treatment Health Maintenance Due Date Last Done Comments COLON CANCER SCREENING 2003 SHINGLES VACCINES (#1) 2003 INFLUENZA VACCINE 05/05/2018 65+ PNEUMOCOCCAL VACCINE 2018 (1 of 2 - PCV13) PNEUMOCOCCAL 2018 POLYSACCHARIDE VACCINE AGE 65 AND OVER Procedures Comments Procedure Name Priority Date/Time Associated Diagnosis ECG 12-LEAD Routine 09/07/2018 Essential hypertension 9:31 AM INSTRUCTIONAL DESIGN CONSULTANT GGT Routine 08/12/2018 Elevated transaminase 8:39 AM INSTRUCTIONAL DESIGN CONSULTANT level HEPATIC FUNCTION PANEL Routine 08/12/2018 Elevated transaminase 8:39 AM INSTRUCTIONAL DESIGN CONSULTANT level LIPID PANEL Routine 08/12/2018 Mixed hyperlipidemia 8:39 AM INSTRUCTIONAL DESIGN CONSULTANT ESTRADIOL LEVEL Routine 08/12/2018 Low testosterone 8:36 AM INSTRUCTIONAL DESIGN CONSULTANT FOLLICLE STIMULATING Routine 08/12/2018 Low testosterone HORMONE 8:36 AM INSTRUCTIONAL DESIGN CONSULTANT SEX HORMONE BINDING Routine 08/12/2018 Low testosterone GLOBULIN 8:36 AM INSTRUCTIONAL DESIGN CONSULTANT TESTOSTERONE LEVEL, FREE Routine 08/12/2018 Low testosterone AND TOTAL, MALE 8:36 AM INSTRUCTIONAL DESIGN CONSULTANT LUTEINIZING HORMONE Routine 08/12/2018 Low testosterone 8:36 AM INSTRUCTIONAL DESIGN CONSULTANT PROLACTIN LEVEL Routine 08/12/2018 Low testosterone 8:36 AM INSTRUCTIONAL DESIGN CONSULTANT US HEPATIC Routine 07/16/2018 Elevated transaminase 10:10 [...] * ECG 12 lead (09/07/2018 9:31 AM INSTRUCTIONAL DESIGN CONSULTANT) Ventricular rate 56 [facility] Atrial rate 56 [facility] AR interval 136 [facility] QRSD interval 124 [facility] QT interval 438 [facility] QTC interval 422 [facility] P axis 1 -10 [facility] QRS axis 1 -72 [facility] T wave axis 16 [facility] EKG impression Sinus bradycardia-Left axis [facility] M[facility] deviation-Nonspecific intraventricular conduction delay-Abnormal ECG-No previous ECGs available- Narrative Performed At Performing Organization Address City/State/Zipcode Phone Number [facility] M[facility] [address] [place] [address] * GGT (08/12/2018 8:39 AM INSTRUCTIONAL DESIGN CONSULTANT) GGT 44 3 - 70 U/L [facility] [place] Specimen Blood Narrative Performed At FASTING:YES QUEST FASTING: YES Resulting Agency Comment Performing Organization Information: Site ID: [facility] Name: [facility] Address: [address] [place] [phone] Director: Yazmin Flores Performing Organization Address [facility] Phone Number [employer] [address] [address] * Hepatic function panel (08/12/2018 8:39 AM INSTRUCTIONAL DESIGN CONSULTANT) Protein 6.2 6.1 - 8.1 g/dL [facility] [place] Albumin, S 3.6 3.6 - 5.1 g/dL [facility] [place] Globulin, total 2.6 1.9 - 3.7 g/dL (calc) [facility] [place] Albumin/globulin ratio 1.4 1.0 - 2.5 (calc) [facility] [place] Total bilirubin 0.4 0.2 - 1.2 mg/dL [facility] [place] Bilirubin direct 0.1 < OR=0.2 mg/dL [facility] [place] Bilirubin, indirect 0.3 0.2 - 1.2 mg/dL (calc) [facility] [place] Alkaline phosphatase 78 40 - 115 U/L [facility] [place] AST 34 10 - 35 U/L [facility] [place] ALT 66 (H) 9 - 46 U/L [facility] [place] Narrative Performed At FASTING:YES QUEST FASTING: YES Resulting Agency Comment Performing Organization Information: Site ID: LE[facility] Name: [facility] Lab Address: [address] [place] [phone] Director: Yazmin Flores Performing Organization Address [facility] Phone Number [employer] [address] [address] * Lipid panel (08/12/2018 8:39 AM INSTRUCTIONAL DESIGN CONSULTANT) Only the most recent of 2 results within the time period is included. Cholesterol, total 167 <200 mg/dL [facility] [place] HDL cholesterol 40 (L) >40 mg/dL [facility] [place] Triglycerides 112 <150 mg/dL [facility] [place] LDL cholesterol 106 (H) mg/dL (calc) [facility] calculated Comment: [place] Reference range: <100 Desirable range <100 mg/dL for primary prevention; <70 mg/dL for patients with CHD or diabetic patients with > or=2 CHD risk factors. LDL-C is now calculated using the Rod calculation, which is a validated novel method providing better accuracy than the Friedewald equation in the estimation of LDL-C. Jomar SS et al. ALEC. 2013;310(42): 2268-0352 (http://education.[employer]Canvas/faq/JGT084) Cholesterol/HDL ratio 4.2 <5.0 (calc) [facility] Non-HDL cholesterol 127 <130 mg/dL (calc) [facility] Comment: [place] For patients with diabetes plus 1 major ASCVD risk factor, treating to a non-HDL-C goal of <100 mg/dL (LDL-C of <70 mg/dL) is considered a therapeutic option. Narrative Performed At FASTING:YES QUEST FASTING: YES Resulting Agency Comment Performing Organization Information: Site ID: [id number] Name: [facility] Address: [address] [place] [phone] Director: Yazmin Flores Performing Organization Address [facility] Phone Number [employer] [place] [address] * Human sex hormone binding globulin (08/12/2018 8:36 AM INSTRUCTIONAL DESIGN CONSULTANT) Sex hormone binding 19 (L) 22 - 77 nmol/L [facility] Specimen Blood Narrative Performed At FASTING:YES QUEST FASTING: YES Resulting Agency Comment Performing Organization Information: Site ID: RGA Name: [facility] Address: [address] [place] [id number] Director: Yazmin Flores Performing Organization Address [facility] [place] [address] * Prolactin level (08/12/2018 8:36 AM INSTRUCTIONAL DESIGN CONSULTANT) Prolactin 8.1 2.0 - 18.0 ng/mL [facility] [place] Specimen Blood Narrative Performed At FASTING:YES QUEST FASTING: YES Resulting Agency Comment Performing Organization Information: Site ID: [facility]: [facility] Address: [address] [place] [phone] Director: Yazmin Flores Performing Organization Address [facility] Phone Number [facility] [place] [address] * Estradiol level (08/12/2018 8:36 AM INSTRUCTIONAL DESIGN CONSULTANT) Estradiol 22 < OR=39 pg/mL [facility] Comment: [place] Reference range established on post-pubertal patient population. No pre-pubertal reference range established using this assay. For any patients for whom low Estradiol levels are anticipated (e.g. males, pre-pubertal children and hypogonadal/post-menopausal females), the [facility] Estradiol, Ultrasensitive, LCMSMS assay is recommended (order code 32429). Please note: patients being treated with the drug fulvestrant (Faslodex(R)) have demonstrated significant interference in immunoassay methods for estradiol measurement. The cross reactivity could lead to falsely elevated estradiol test results leading to an inappropriate clinical assessment of estrogen status. [facility] order code [id number], Ultrasensitive LC/MS/MS demonstrates negligible cross reactivity with fulvestrant. Specimen Blood Narrative Performed At FASTING:YES QUEST FASTING: YES Resulting Agency Comment Performing Organization Information: Site ID: RGA Name: [facility] Address: [address] [place] [phone] Director: Yazmin Flores Performing Organization Address City/State/Zipcode Phone Number [facility] [place] [phone] * Testosterone level, free and total, male (08/12/2018 8:36 AM INSTRUCTIONAL DESIGN CONSULTANT) Only the most recent of 2 results within the time period is included. Testosterone, total, 153 (L) 250 - 1,100 ng/dL [facility] 28 lc/ms/ms Comment: CAMERON LUCAS Men with clinically significant hypogonadal symptoms and testosterone values repeatedly in the range of the 200-300 ng/dL or less, may benefit from testosterone treatment after adequate risk and benefits counseling. Testosterone, free 43.5 35.0 - 155.0 pg/mL [facility] Comment: [place] LUCAS Data from J Clin Invest 1974:53:819-828 and J Clin Endocrinol Metab 1973;36:2968-7393. Men with clinically significant hypogonadal symptoms and testosterone values repeatedly in the range of the 200-300 ng/dL or less, may benefit from testosterone treatment after adequate risk and benefits counseling. For additional information, please refer to http://education.[employer].com/faq/ZQR338 (This link is being provided for informational/ educational purposes only.) This test was developed and its analytical performance characteristics have been determined by [employer] [facility]. It has not been cleared or approved by the US Food and Drug Administration. This assay has been validated pursuant to the CLIA regulations and is used for clinical purposes. Specimen Blood Narrative Performed At FASTING:YES QUEST FASTING: YES Resulting Agency Comment Performing Organization Information: Site ID: [facility] Address: [address] [place] [id number] Director: Diego Townsend M.D., Ph.D Performing Organization Address City/[facility] Phone Number [employer] [address] [address] [place] * Luteinizing hormone (08/12/2018 8:36 AM INSTRUCTIONAL DESIGN CONSULTANT) Luteinizing hormone 4.5 1.6 - 15.2 mIU/mL [facility] [place] Specimen Blood Narrative Performed At FASTING:YES QUEST FASTING: YES Resulting Agency Comment Performing Organization Information: Site ID: RGA Name: [facility] Address: [address] [place] [phone] Director: Yazmin Flores Performing Organization Address [facility] Phone Number [employer] [place] [address] * Follicle stimulating hormone (08/12/2018 8:36 AM INSTRUCTIONAL DESIGN CONSULTANT) Follicle stimulating 5.2 1.6 - 8.0 mIU/mL [facility] Specimen Blood Narrative Performed At FASTING:YES QUEST FASTING: YES Resulting Agency Comment Performing Organization Information: Site ID: RGA Name: [id number] Lab Address: [address] [place] [phone] Director: Yazmin Flores Performing Organization Address [facility] Phone Number [employer] [place] [address] * [place] Hepatic (07/16/2018 10:10 AM CDT) [...] cm. Impression: Echogenic liver consistent with steatosis. [facility]-[id number] Procedure Note Hm Interface, Radiology Results Incoming [...] cm. Impression: Echogenic liver consistent with steatosis. [facility]-[id number] Performing Organization Address City/State/Zipcode Phone Number [facility] [address] [place] [address] * POC Influenza A/B (03/18/2018 12:09 PM CDT) Rapid Influenza A Ag neg Rapid Influenza B Ag neg Specimen Nasopharyngeal * URINALYSIS, COMPLETE, WITH REFLEX TO CULTURE (03/11/2018 12:43 PM CDT) Color, UA DARK YELLOW YELLOW [facility] [place] Appearance CLEAR CLEAR [facility] [place] Specific gravity, urine > OR=1.030 1.001 - 1.035 [facility] [place] pH, urine 5.5 5.0 - 8.0 [facility] [place] Glucose, urine NEGATIVE NEGATIVE [facility] [place] Bilirubin, UA NEGATIVE NEGATIVE [facility] [place] Ketones, UA NEGATIVE NEGATIVE [facility] [place] Occult blood, urine NEGATIVE NEGATIVE [facility] [place] Protein, UA NEGATIVE NEGATIVE [facility] [place] Nitrite, UA NEGATIVE NEGATIVE [facility] [place] Leukocyte esterase, UA NEGATIVE NEGATIVE [facility] [place] WBC, UA NONE SEEN < OR=5 /HPF [facility] [place] RBC, UA NONE SEEN < OR=2 /HPF [facility] [place] Squamous epithelial NONE SEEN < OR=5 /HPF [facility] cells, UA [place] Bacteria, UA NONE SEEN NONE SEEN /HPF [facility] [place] Hyaline casts, UA NONE SEEN NONE SEEN /LPF [facility] [place] Reflex NO CULTURE INDICATED [facility] [place] Narrative Performed At FASTING:YES QUEST FASTING: YES Resulting Agency Comment Performing Organization Information: Site ID: RGA Name: [facility] Address: [address] [place] [phone] Director: Yazmin Flores Performing Organization Address City/State/Zipcode Phone Number MARC[facility] [address] [place] [address] * CBC with platelet and differential (03/11/2018 12:43 PM CDT) WBC 6.9 3.8 - 10.8 Thousand/uL [facility] [place] RBC 4.94 4.20 - 5.80 Million/uL [facility] [place] HGB 14.4 13.2 - 17.1 g/dL [facility] [place] HCT 43.1 38.5 - 50.0 % [facility] [place] MCV 87.2 80.0 - 100.0 fL [facility] [place] MCH 29.1 27.0 - 33.0 pg [facility] [place] MCHC 33.4 32.0 - 36.0 g/dL [facility] [place] RDW 13.7 11.0 - 15.0 % [facility] [place] Platelet count 179 140 - 400 Thousand/uL [facility] [place] MPV 12.2 7.5 - 12.5 fL [facility] [place] Neutrophils, absolute 3,222 1,500 - 7,800 cells/uL [facility] [place] Lymphocytes, absolute 3,002 850 - 3,900 cells/uL [facility] [place] Monocytes, absolute 497 200 - 950 cells/uL [facility] [place] Eosinophils, absolute 138 15 - 500 cells/uL [facility] [place] Basophils, absolute 41 0 - 200 cells/uL [facility] [place] Neutrophils 46.7 % [facility] [place] Lymphocytes 43.5 % [facility] [place] Monocytes 7.2 % [facility] [place] Eosinophils 2.0 % [facility] [place] Basophils + RC 0.6 % [facility] [place] Narrative Performed At FASTING:YES QUEST FASTING: YES Resulting Agency Comment Performing Organization Information: Site ID: RGA [facility]: [facility] Address: [address] [place] [phone] Director: Yazmin Flores Performing Organization Address City/State/Zipcode Phone Number [employer] [address] [address] * Thyroid stimulating hormone (03/11/2018 12:43 PM CDT) TSH 0.74 0.40 - 4.50 mIU/L [facility] [place] Narrative Performed At FASTING:YES QUEST FASTING: YES Resulting Agency Comment Performing Organization Information: Site ID: A Name: [facility] Address: [address] [place] [phone] Director: Yazmin Flores Performing Organization Address [facility] Phone Number [facility] [place] [address] * T4, free (03/11/2018 12:43 PM CDT) T4, free 1.0 0.8 - 1.8 ng/dL [facility] [place] Narrative Performed At FASTING:YES QUEST FASTING: YES Resulting Agency Comment Performing Organization Information: Site ID: [facility] Name: [facility] Address: [address] [place] [phone] Director: Yazmin Flores Performing Organization Address [facility] Phone Number [employer] [place] [address] * Prostate specific antigen (03/11/2018 12:43 PM CDT) PSA 0.8 < OR=4.0 ng/mL [facility] Comment: [place] The total PSA value from this assay [...] Performing Organization Information: Site ID: RGA Name: [facility] Address: [address] [place] [phone] Director: Yazmin Flores Performing Organization Address [facility] Phone Number [employer] [place] [address] * Creatine kinase, total (CPK) (03/11/2018 12:43 PM CDT) Creatine kinase 121 44 - 196 U/L [facility] [place] Narrative Performed At FASTING:YES QUEST FASTING: YES Resulting Agency Comment Performing Organization Information: Site ID: A Name: [facility] Address: [address] [place] [phone] Director: Yazmin Flores Performing Organization Address [facility] Phone Number [employer] [place] [address] [place] [address] * Comprehensive metabolic panel (03/11/2018 12:43 PM CDT) Glucose 99 65 - 99 mg/dL [facility] Comment: [place] Fasting reference interval BUN, whole blood 24 7 - 25 mg/dL [facility] [place] Creatinine 0.91 0.70 - 1.25 mg/dL [facility] Comment: [place] For patients >49 years of age, the reference limit for Creatinine is approximately 13% higher for people identified as -Nigerian. EGFR Non-Afr. Nigerian 89 > OR=60 mL/min/1.73m2 [facility] [place] EGFR 103 > OR=60 mL/min/1.73m2 [facility] [place] BUN/creatinine ratio NOT APPLICABLE 6 - 22 (calc) [facility] [place] Sodium 142 135 - 146 mmol/L [facility] [place] Potassium 4.6 3.5 - 5.3 mmol/L [facility] [place] Chloride 104 98 - 110 mmol/L [facility] [place] CO2 29 20 - 31 mmol/L [facility] [place] Calcium 9.1 8.6 - 10.3 mg/dL [facility] [place] Protein 6.8 6.1 - 8.1 g/dL [facility] [place] Albumin, S 3.9 3.6 - 5.1 g/dL [facility] [place] Globulin, total 2.9 1.9 - 3.7 g/dL (calc) [facility] [place] Albumin/globulin ratio 1.3 1.0 - 2.5 (calc) [facility] [place] Total bilirubin 0.4 0.2 - 1.2 mg/dL [facility] [place] Alkaline phosphatase 68 40 - 115 U/L [facility] [place] AST 43 (H) 10 - 35 U/L [facility] [place] ALT 75 (H) 9 - 46 U/L [facility] [place] Narrative Performed At FASTING:YES QUEST FASTING: YES Resulting Agency Comment Performing Organization Information: Site ID: RGA Name: [facility] Address: [address] [place] [phone] Director: Yazmin Flores Performing Organization Address City/[facility]/Zipcode Phone Number [employer] [address] [address] after 12/31/2017 Insurance Payer Benefit Subscriber ID Type Phone Address Plan / Group MEDICARE MEDICARE xxxxxxxxxxx Medicare [place], [place] PART A AND B BCBS BCBS xxxxxxxxxxxx PPO CHOICE PPO/HAL SOTO PPO Advance Directives Patient has advance care planning documents on file. For more information, oh fernandes contact: Sunny Dias [address] [place] [address]
--- NOTE | 2019-01-01 13:38 | NUR ---
NOTIFIED [facility] FOR PATIENT TRANSPORT TO [facility] MAIN [place],[address], VIA STRETCHER,SPOKE WITH MAXINE.
--- NOTE | 2019-01-01 15:01 | NUR ---
PATIENT DEPARTING [facility], TRANSPORTED TO [facility] MAIN [place] VIA STRETCHER, NO SIGNS OF ACUTE DISTRESS NOTED AT THIS TIME.
--- NOTE | 2019-01-01 15:48 | NUR ---
SPOKE WITH DR. VILLALBA NOTIFIED REGARDING NEW CONSULT. STATES WILL SEE PT TOMORROW.
[2019-01-01] MEDS ORDERED: LISINOPRIL10 MG PO (16:06)
[2019-01-01] MEDS ORDERED: ZOLOFT50 MG PO (16:06)
[2019-01-01] MEDS ORDERED: LANZOPRAZOLE PO (16:06)
[2019-01-01] MEDS ORDERED: AMBIEN10 MG PO (16:06)
[2019-01-01] MEDS ORDERED: SIMVASTATIN20 MG PO (16:06)
[2019-01-01] MEDS ORDERED: ZOLPIDEM TARTRATE 10 MG TAB PO PRN (16:15)
[2019-01-01] MEDS ORDERED: ACETAMINOPHEN 325 MG TAB PO PRN (16:15)
[2019-01-01] MEDS ORDERED: DEXTROSE 50% SYRINGE 50 ML IV PRN (16:15)
[2019-01-01] MEDS: INSULIN REGULAR, HUMAN 100 UNIT/1 ML 3ML VIAL SQ SCH ×2 (16:55→20:08)
[2019-01-01 17:04] VITALS: BP 135/71
[2019-01-01 17:15] VITALS: BP 135/71
[2019-01-01 17:50] VITALS: BP 135/71
--- NOTE | 2019-01-01 18:00 | NUR ---
PER DR. SILVA PT DOES NOT NEED TO BE ON ISOLATION.
[2019-01-01] MEDS ORDERED: CEFTRIAXONE SOD 1 GM/NS 50 ML 50 ML IV SCH (18:15)
--- NOTE | 2019-01-01 18:53 | NUR ---
WALKING ROUNDS PERFORMED, RECEIVED PT LAYING SEMI FOWLERS IN BED, AAO3, RR EVEN AND NON-LABORED, ON RA. NO S/SX OF DISTRESS NOTED. LEFT PT LAYING SEMI FOWLERS IN BED, BED IN LOW LOCKED POSITION, SIDE RAILS UPX2, CALL LIGHT AND PHONE WITHIN REACH.
--- NOTE | 2019-01-01 19:34 | Diagnostic Imaging Report ---
EXAMINATION: CHEST 2 VIEWS INDICATION: COUGH COMPARISON: None FINDINGS: PA and lateral views TUBES and LINES: None. LUNGS: Low lung volumes with bibasilar atelectasis. There is no evidence of pneumonia or pulmonary edema. PLEURA: No pleural effusion or pneumothorax. HEART AND MEDIASTINUM: The cardiomediastinal silhouette is unremarkable. BONES AND SOFT TISSUES: No acute osseous lesion. Soft tissues are unremarkable. UPPER ABDOMEN: No free air under the diaphragm. IMPRESSION: No acute thoracic abnormality. Signed by: DR. Juancarlos Levin MD on 01/01/2019 7:31 PM
[2019-01-01 20:00] VITALS: BP 131/59
--- NOTE | 2019-01-01 20:11 | NUR ---
SPOKE WITH MD EDWARDS CONCERNING PT ELEVATED BS. NEW ORDERS RECEIVED.
[2019-01-01] MEDS ORDERED: INSULIN REGULAR, HUMAN 100 UNIT/1 ML 3ML VIAL SQ ONE (20:15)
[2019-01-01 20:51] VITALS: BP 131/59
[2019-01-01] MEDS: SIMVASTATIN 20 MG TAB PO SCH (20:54)
[2019-01-01] MEDS ORDERED: INSULIN GLARGINE 100 UNITS/ML VIAL SQ SCH (21:00)
[2019-01-02] VITALS (7 sets, daily range): BP systolic 134–170; BP diastolic 64–81
[2019-01-02] MEDS: ACETAMINOPHEN 325 MG TAB PO PRN ×3 (00:05→18:00)
[2019-01-02 06:34] LABS: BASOPHILS % 0.1 % (0.0-1.0); HEMATOCRIT 40.1 % (38.2-49.6); HEMOGLOBIN 13.1 g/dL (14.0-18.0); LYMPHOCYTES # (AUTO) 1.6 (1.0-3.2); LYMPHOCYTES % 12.5 % (18.0-39.1); MEAN CORPUSCULAR HEMOGLOBIN 29.4 pg (28-32); MEAN CORPUSCULAR HGB CONC 32.7 g/dL (31-35); MEAN CORPUSCULAR VOLUME 89.9 fL (81-99); MONOCYTES # (AUTO) 1.1 (0.2-0.8); MONOCYTES % 8.6 % (4.4-11.3); NEUTROPHILS # (AUTO) 9.9 (2.1-6.9); NEUTROPHILS % 78.6 % (38.7-80.0); PLATELET COUNT 152 x10e3/uL (140-360); RED BLOOD COUNT 4.46 x10e6/uL (4.3-5.7); RED CELL DISTRIBUTION WIDTH 14.3 % (11.7-14.4)
[2019-01-02 06:53] LABS: CHOL/HDL RATIO 3.1 (3.9-4.7)
[2019-01-02] MEDS: PANTOPRAZOLE SOD 40 MG TABEC PO SCH (08:17)
[2019-01-02] MEDS: INSULIN REGULAR, HUMAN 100 UNIT/1 ML 3ML VIAL SQ SCH ×4 (08:17→21:02)
[2019-01-02] MEDS: LISINOPRIL 10 MG TAB PO SCH (08:17)
[2019-01-02] MEDS: SERTRALINE HCL 50 MG TAB PO SCH (08:17)
[2019-01-02] MEDS: SODIUM CHLORIDE 0.9% 1000ML 1,000 ML IV SCH ×2 (10:00→21:05)
[2019-01-02] MEDS: PROMETHAZINE 25MG/ NS 50ML (IV) IV SCH ×2 (11:16→17:12)
[2019-01-02] MEDS ORDERED: METHYLPREDNISOLONE SOD SUCC 125 MG/2ML VIAL IV SCH ×2 (12:00→18:00)
[2019-01-02] MEDS: VALPROATE SOD INJ 500 MG in SODIUM CHLORIDE 0.9% 100 ML 100 ML IV SCH ×2 (12:13→17:47)
[2019-01-02] MEDS ORDERED: PROMETHAZINE 25MG/ NS 50ML (IV) IV ONE (17:30)
--- NOTE | 2019-01-02 17:57 | Consultation ---
DATE OF CONSULTATION: 01/02/2019 Neurology Consult Note HISTORY OF PRESENT ILLNESS: Mr. Levy is a 63-year-old left-hand dominant man with past medical history significant for migraines, admitted to [facility] on January 01, 2019, with a severe headache and elevated white blood cell count. On Monday, December 31, 2018, the patient received epidural steroid injections to the lumbar spine at [facility] by Dr. Hidalgo. There were no complications during the procedure. Mr. Levy reports feeling well following the procedure. On the morning of admission, the patient awoke with a headache, which is described as follows: The pain is located at the vertex and around the skull. The pain is described as pounding and was rated a 10/10. At present, the pain is rated a 7/10. Mr. Levy does not report photophobia, phonophobia, nausea, vomiting, visual disturbance, or confusion associated with the headache. He does endorse dizziness, which is further described as a lightheaded sensation. Mr. Levy does not report any pain or stiffness in his neck. The patient does report frequent urination. Due to the severity of the headache, the patient proceeded to a free-standing Emergency Center for further evaluation. At the free-standing Emergency Center, the patient's neurological examination was reportedly nonfocal. Blood and urine studies were significant only for an elevated white blood cell count of greater than 15. Due to the presence of a severe headache and elevated white blood cell count, there was concern for meningitis. Mr. Levy was directly admitted to [facility] for further evaluation and treatment. As stated above, the patient does have a prior history of migraines with his last migraine occurring approximately two years ago. Prior to that, Mr. Levy reports experiencing 2 to 3 migraines per year. He states the headache he is experiencing now is very similar to the migraines he has experienced previously. REVIEW OF SYSTEMS: Frequent urination, headache, dizziness which is further described as lightheaded sensation. Otherwise, a 12-point review of systems is negative. PAST MEDICAL HISTORY: Hypertension, hyperlipidemia, recently diagnosed diabetes mellitus type 2, gastroesophageal reflux disease, anxiety disorder, and migraines. PAST SURGICAL HISTORY: Epidural steroid injections on December 31, 2018, left rotator cuff repair, right shoulder arthroscopy, and right knee arthroscopy. PAST HOSPITALIZATIONS: Surgeries/procedures as listed. FAMILY MEDICAL HISTORY: Hypertension and diabetes mellitus. SOCIAL HISTORY: Mr. Levy is . He is retired. The patient does smoke cigarettes-one half pack per day for 45+ years. The patient does not report current or prior alcohol or recreational drug use. HOME MEDICATIONS: Lisinopril 20 mg by mouth daily, simvastatin 20 mg by mouth at bedtime daily, lansoprazole 30 mg by mouth daily, sertraline 50 mg by mouth daily, Ambien 10 mg by mouth at bedtime as needed for sleep. HOSPITAL MEDICATIONS: Acetaminophen, ceftriaxone, hydralazine, insulin glargine, ketorolac, lisinopril, Zofran, pantoprazole, sertraline, simvastatin, zolpidem tartrate. ALLERGIES: NO KNOWN DRUG ALLERGIES. NO KNOWN FOOD ALLERGIES. NO KNOWN ALLERGIES TO LATEX. NO KNOWN ALLERGIES TO IODINE OR OTHER CONTRAST MATERIALS. PHYSICAL EXAMINATION: VITAL SIGNS: Height 66 inches, weight 226 pounds, BMI 36.5 kg/m2, blood pressure 134/64 mmHg, pulse 74 beats per minute, respiratory rate 18 breaths per minute, oxygen saturation 95% on room air. GENERAL: The patient is awake and alert, does not appear distressed. Obese. HEENT: Normocephalic, atraumatic. Pupils equal, round, and reactive to light. Moist mucous membranes. NECK: Supple. No appreciable thyromegaly. No appreciable carotid bruits. CARDIOVASCULAR: S1, S2, regular rate and rhythm. No murmurs, rubs, or gallops. RESPIRATORY: Clear to auscultation bilaterally. No wheezes, rhonchi, or rales. EXTREMITIES: The skin is warm and dry. No clubbing, cyanosis, or edema. The posterior tibial and dorsalis pedis pulses are 2+ and symmetric. SKIN: No rashes or lesions. NEUROLOGIC: Memory/attention: The patient is awake and alert, oriented to person, place, time, and situation. Cranial nerves: Cranial nerve I - not tested. Cranial nerve II, III, IV, and - pupils are equal and round, react briskly to light (from 6 mm to 3 mm). Extraocular movements intact. No nystagmus. Cranial nerve V - sensation to light touch and pinprick is intact in the bilateral V1 through V3 distributions. Strength in the temporalis and masseter muscles is within normal limits. Cranial nerve VII - the face is symmetric as are all facial movements. Strength is within normal limits. Cranial nerve VIII-hearing is intact to finger rub bilaterally. Cranial nerve IX, X - the soft palate elevates equally and symmetrically. Cranial nerve XI - normal strength of the bilateral sternocleidomastoid and trapezius muscles. Cranial nerve XII - the tongue protrudes midline and moves symmetrically from [id number]. Strength: Bulk is normal. Strength is 5/5 in the bilateral deltoids, biceps, triceps, wrist flexors and extensors, finger flexors and extensors, intrinsic hand muscles, hip flexors, knee flexors and extensors, ankle dorsiflexion and plantar flexion, and intrinsic foot muscles. Tone is normal. DTRs: Deep tendon reflexes are 2+ and symmetric at the triceps, biceps, brachioradialis, patellas, and Achilles. Plantar responses are flexor bilaterally. Sensation: Sensation is intact to light touch and pinprick in both arms and both legs. Cerebellar: [id number] and heel-elias movements are intact without dysmetria or other impairment. Gait: Deferred. Speech: Spontaneous speech is normal without appreciable dysarthria or aphasia. Repetition is intact. Involuntary movements: None. Pronator Drift: None. LABORATORY DATA: Serum glucoses have ranged from 223 to 397 since the patient was admitted. His hemoglobin A1c is 9.5. Total cholesterol 156, triglycerides 121, LDL cholesterol 82, HDL cholesterol 50. The CBC with differential and platelets reveals a white blood cell count of 12.59 with 78.6% neutrophils, 12.5% lymphocytes, 8.6% monocytes, 0.0% eosinophils, and 0.1% basophils. The hemoglobin and hematocrit are 13.1 and 40.1, respectively. The platelet count is 152. DIAGNOSTIC STUDIES: Electrocardiogram on 01/01/2019: Normal sinus rhythm at 76 beats per minute. Left axis deviation. CT of the brain without contrast 01/01/2019: On my review, there is no evidence of recent large territorial ischemia, hemorrhage, mass, or mass effect. Cerebral volumes are appropriate for age. There are no findings suspicious for chronic small- vessel ischemic disease. Chest x-ray on 01/01/2019: No acute thoracic abnormality. ASSESSMENT AND PLAN: Mr. Levy is a 63-year-old man with a history of migraine with aura, not intractable, admitted to [facility] on January 01, 2019, with status migrainosus. At present, the patient's neurological examination is nonfocal. There is no evidence of meningismus on examination. The patient's laboratory data and other diagnostic studies have been reviewed and are documented above. RECOMMENDATIONS: Are as follows: 1. Promethazine 25 mg IV every 6 hours x2 doses. 2. Methylprednisolone 125 mg intravenously every 6 hours x2 doses. 3. Valproate 500 mg intravenously every 6 hours x2 doses. 4. This combination of medications should alleviate the patient's migraine. 5. Defer treatment of the remaining medical comorbidities to the primary and other services following the patient. Thank you for this consultation. I will continue to follow the patient while he remains in the hospital. TIME SPENT: 50 minutes. Maegan Shields MD CP/IFRAH /[id number]
--- NOTE | 2019-01-02 18:07 | Progress Note ---
DATE: SUBJECTIVE: Mr. Levy is doing better. His headache has improved. He still gets headache, although yesterday when I examined him, he denies he is having any headache. The patient currently in bed, comfortable. PHYSICAL EXAMINATION: GENERAL: Currently alert, oriented, does not seem to be in acute distress. VITAL SIGNS: Stable, currently afebrile. HEENT: Not icteric. NECK: Supple. No JVD. No lymphadenopathy. No thyromegaly. CHEST: Clear bilateral. HEART: S1, S2. No S3, S4, or murmur. ABDOMEN: Soft. Bowel sounds present. No tenderness. EXTREMITIES: No edema. SKIN: No rash. REVIEW OF SYSTEMS: The patient is also telling me that he has urgency and frequency, which he did not tell me yesterday. I do not see my consult from yesterday. IMAGING: The patient had a CT of the head, showed no acute findings. Chest x-ray, which I ordered yesterday was negative. LABORATORY DATA: His white count 12.59, hemoglobin 13. His glucose was 283. IMPRESSION: 1. Fever, there is none since admission. 2. Headache, I am not so sure, but neurology is following. 3. Urgency and frequency, could be UTI. We will get UA complete panel, hemoglobin A1c. We will defer to Internal Medicine. MD FREDY Toussaint/IFRAH /[id number]
--- NOTE | 2019-01-02 18:57 | History and Physical ---
CHIEF COMPLAINT: Headaches, hyperglycemia. HISTORY OF PRESENT ILLNESS: This is a 63-year-old, male, very noncompliant, morbidly obese, reports seeing up PCP, but never been diagnosed with diabetes, goes to an outside ER with complaints of severe excruciating headaches that began yesterday morning. The patient reports having a lumbar procedure from Pain Management on 12/31/2018, and upon discharge, he was doing well with no complaints until yesterday. He began to have excruciating headaches. Denies any blurry vision, fever at home, stiff neck, or any bowel or urinary incontinence. He reported that outside ER, was told that he had hyperglycemia and he was being admitted for his elevated glucose levels. Neurology and ID were consulted to further evaluate and manage accordingly. During my evaluation, the patient was still complaining of headache, but he was able to move his neck from [id number]. No evidence of any white count or any fever. He was just complaining of excruciating headache. He denies any chest pain, palpitation, nausea, or vomiting. He is afebrile. The patient was seen and evaluated with normal vital signs when I evaluated him. REVIEW OF SYSTEMS: Pertinent positives: Headache, chronic back pain. Pertinent negatives: Denies any chest pain, palpitation, nausea, vomiting, diarrhea, dysuria, hematuria, frequency, urgency, lightheadedness, dizziness, abdominal pain, headaches, shortness of breath, cough, congestion, fever, or any other complaints. Rest of 14-point review of systems are reviewed with the patient and are negative. ALLERGIES: NO KNOWN DRUG ALLERGIES. HOME MEDICATIONS: Lisinopril 20 mg daily, Zoloft 50 mg daily, simvastatin 20 mg daily, Ambien 10 mg at bedtime for sleep, lansoprazole 30 mg daily. PAST MEDICAL HISTORY: Depression, hyperlipidemia, hypertension, now type 2 diabetes. PAST SURGICAL HISTORY: Recent lumbar spine pain control management performed on 12/31/2018 by a physician in [facility]. FAMILY HISTORY: Hypertension, diabetes. SOCIAL HISTORY: No drugs or alcohol. Does not smoke. Good social support. PHYSICAL EXAMINATION: VITAL SIGNS: Temperature is 98.1, pulse 63, respiratory rate 16, blood pressure is 134/64, pulse ox 95% on room air. He has been afebrile while here in the hospital. LABORATORY DATA: White count 12.5, hemoglobin 13, hematocrit 40, platelets of 162. Chemistry, hemoglobin A1c 9.5, LDL is 82. Urinalysis, none. Microbiology, none. IMAGING STUDIES: CT brain was found to be negative. Chest x-ray is negative. GENERAL: Not in acute distress. Alert and oriented x3. Cooperative on examination. HEENT: Head normocephalic, atraumatic. Eyes, pupils are equal, round, and reactive to light bilaterally. Extraocular movements are intact bilaterally. NECK: Supple. Good range of motion. PULMONARY: Clear to auscultation bilaterally. No wheezing, rales, or rhonchi. No crackles appreciated. CARDIOVASCULAR: Positive S1, S2. No murmurs, rubs, or gallops appreciated. ABDOMEN: Soft, nondistended, nontender to palpation. Bowel sounds present MUSCULOSKELETAL: Strength is 5/5 throughout. No evidence of any muscle deficits on examination. No weakness appreciated. NEUROLOGIC: Cranial nerves II through XII grossly intact. No evidence of any neurological deficits on exam. SKIN: Intact. Warm to touch. Good cap refill. PSYCHIATRIC: Normal affect and mood. EXTREMITIES: No edema. Good motion throughout. IMPRESSION: 1. Headache, status post back injection on 12/31/2018 with mild elevation of white count, but afebrile. 2. Uncontrolled type 2 diabetes, newly diagnosed. 3. Hypertension. 4. Morbid obesity. PLAN: At this time, the patient came in with a white count at the outside ER of 16, but he was afebrile. He was complaining of excruciating headache. My concern is a spinal headache from the procedure. Must rule out infection, which ID and Neurology were consulted. At this time, the patient is started on IV Rocephin already by Infectious Disease. Awaiting for Neurology recommendations and to monitor him closely. May need MRI of the brain, but we will defer all of this to Neurology. He has been started on Depacon by Neurology as well. I have started him on Lantus 15 units subcu at bedtime as well as sliding scale. He apparently has been given some more doses of steroids likely from Neurology. He may need also a blood patch for his headaches. I discussed this plan of care with the patient at bedside as well. I also encouraged him to walk and ambulate around the hospital. He has pain control as well. Resume same home medications as well. MD WILEY Jean-Baptiste/IFRAH /[id number]
[2019-01-02] MEDS: CEFTRIAXONE SOD 1 GM/NS 50 ML 50 ML IV SCH (21:02)
[2019-01-02] MEDS: INSULIN GLARGINE 100 UNITS/ML VIAL SQ SCH (21:02)
[2019-01-02] MEDS: SIMVASTATIN 20 MG TAB PO SCH (21:02)
[2019-01-03] VITALS (8 sets, daily range): BP systolic 142–185; BP diastolic 66–86
[2019-01-03] MEDS: SODIUM CHLORIDE 0.9% 1000ML 1,000 ML IV SCH (03:14)
[2019-01-03 06:33] LABS: BASOPHILS % 0.1 % (0.0-1.0); HEMATOCRIT 39.1 % (38.2-49.6); HEMOGLOBIN 12.8 g/dL (14.0-18.0); LYMPHOCYTES # (AUTO) 1.6 (1.0-3.2); LYMPHOCYTES % 13.6 % (18.0-39.1); MEAN CORPUSCULAR HGB CONC 32.7 g/dL (31-35); MEAN CORPUSCULAR VOLUME 88.5 fL (81-99); MONOCYTES # (AUTO) 0.5 (0.2-0.8); MONOCYTES % 4.2 % (4.4-11.3); NEUTROPHILS # (AUTO) 9.5 (2.1-6.9); NEUTROPHILS % 81.3 % (38.7-80.0); PLATELET COUNT 154 x10e3/uL (140-360); RED BLOOD COUNT 4.42 x10e6/uL (4.3-5.7); RED CELL DISTRIBUTION WIDTH 14.1 % (11.7-14.4)
[2019-01-03 06:48] LABS: ANION GAP 10.5 mmol/L (8-16); BLOOD UREA NITROGEN 17 mg/dL (7-26); BUN/CREATININE RATIO 21 (6-25); CALCIUM 8.6 mg/dL (8.4-10.2); CARBON DIOXIDE 26 mmol/L (22-29); CHLORIDE 108 mmol/L (98-107); CREATININE, SERUM 0.81 mg/dL (0.72-1.25); EST GLOMERULAR FILTRATION RATE > 60 ML/MIN (60-); GLUCOSE 230 mg/dL (74-118); POTASSIUM 4.5 mmol/L (3.5-5.1); SODIUM 140 mmol/L (136-145)
--- NOTE | 2019-01-03 07:15 | NUR ---
Received patient in report this morning. Patient is awake in bed. No S&S of distress noted.
[2019-01-03] MEDS: INSULIN REGULAR, HUMAN 100 UNIT/1 ML 3ML VIAL SQ SCH ×4 (08:33→20:41)
[2019-01-03] MEDS: PANTOPRAZOLE SOD 40 MG TABEC PO SCH (08:33)
[2019-01-03] MEDS: SERTRALINE HCL 50 MG TAB PO SCH (08:34)
[2019-01-03] MEDS: LISINOPRIL 10 MG TAB PO SCH (08:34)
[2019-01-03] MEDS: INSULIN GLARGINE 100 UNITS/ML VIAL SQ SCH ×2 (08:34→20:40)
--- NOTE | 2019-01-03 08:52 | NUR ---
Patient is awake in bed, A&Ox3. Lung sounds clear, bowel sounds active. No edema noted. Skin intact. Patient reports slight headache, but not enough for meds, and much better than previously. No other complaints or S&S reported or noted. 20g R AC IV patent and asymptomatic. Bed locked in lowest position, call light in reach, personal items in reach, non-skid footwear in place. Patient administered own insulin, both Humulin and Lantus. Explained the difference between the two kinds of insulin. Patient verbalized understanding. Patient demonstrated proper technique with cleansing skin first and administering insulin. Provided patient with literature about insulin use and side effects and about diabetes diet. Told patient to call if he had any questions or concerns.
--- NOTE | 2019-01-03 10:21 | NUR ---
IMM EXPLAINED TO PT, SIGNED AND PLACED ON CHART COPY TO PT IN CARE TRANSITION FOLDER
[2019-01-03] MEDS ORDERED: ONDANSETRON HCL 4 MG ORAL DISINTEGRATING TAB PO PRN (10:30)
--- NOTE | 2019-01-03 10:35 | Consultation ---
DATE OF CONSULTATION: REASON FOR CONSULTATION: Fever and headache. HISTORY OF PRESENT ILLNESS: This patient who is a 63-year-old white male denies any past medical history. He does have underlying history of obesity. He woke up today with severe headache, 10/10, fever. He went to Urgent Care where his CBC showed to have a WBC of 15, so he was sent here. There was concern about meningitis. The patient is being admitted. I was asked to see him. Currently, the patient tells me he has no headache. He said he is feeling much better, but the fever also is still there. He only has some dry cough he is telling me, but he has no complaints at present time and he said all this illness started suddenly. PAST MEDICAL HISTORY: He denies, but he states he does have hypertension and recently he was told to have diabetes, but he was unaware. PAST SURGICAL HISTORY: Denies. ALLERGIES: NKA. SOCIAL HISTORY: There is no smoking, drug abuse, or alcohol abuse. FAMILY HISTORY: Unremarkable REVIEW OF SYSTEMS: HEENT: Negative. PULMONARY: Negative. CARDIAC: Negative. : Negative. GI: Negative. SKIN: No rash or symptoms at present time. I reviewed with the patient. He is feeling well except for this dry cough. MEDICATION LIST: Reviewed. He was on Protonix, Ambien, Zocor, Zoloft, Prinivil. LABORATORY DATA: I reviewed when he came from the other facility. His glucose was . CAT scan was negative. PHYSICAL EXAMINATION: GENERAL: He is currently alert, oriented, does not seem to be in acute distress. VITALS: Stable. Currently afebrile. HEENT: He does not appear icteric. NECK: Supple. CHEST: Clear bilateral. HEART: S1, S2. No S3, S4, murmur. ABDOMEN: Soft. Bowel sounds present. No tenderness. No hepatosplenomegaly. EXTREMITIES: No edema. SKIN: No rash. IMPRESSION AND PLAN: Fever and headache. The headache has resolved. So, I doubt meningitis. He is having dry cough, so we will get a chest x-ray. I would recommend to obtain blood cultures. Recheck CBC tomorrow. Recheck a chemistry panel. We will put him on Rocephin 1 g daily. Discussed with the nurse. Discussed with the patient. We will reassess. MD SONU Toussaint /[id number]
--- NOTE | 2019-01-03 13:42 | Progress Note ---
DATE: 01/03/2019 Medicine Progress Note SUBJECTIVE: The patient's headache is much improved now. No evidence of any fever. He has been afebrile since he has been here. PHYSICAL EXAMINATION: VITAL SIGNS: Temperature is 98; pulse 64; respiratory rate is 20; blood pressure is still elevated at 176/77, medications were adjusted; O2 sats 97% on room air. GENERAL: Not in acute distress. Alert and oriented x3. Cooperative on examination. HEENT: Head is normocephalic and atraumatic. Eyes; pupils are equal, round, and reactive to light bilaterally. Extraocular movements are intact bilaterally. Throat, no evidence of erythema or exudates in the posterior pharynx. Has poor dentition. NECK: Supple. Good range of motion. PULMONARY: Clear to auscultation bilaterally. No wheezing, no rales, no rhonchi, no crackles appreciated. CARDIOVASCULAR: Positive S1, S2. No murmurs, rubs, or gallops appreciated. ABDOMEN: Soft, nondistended, and nontender to palpation. Bowel sounds present. MUSCULOSKELETAL: Strength is 5/5 throughout. No evidence of any muscle deficits on examination. No weakness appreciated. NEUROLOGICAL: Cranial nerves 2 through 12 grossly intact. No evidence of any neurological deficits on exam. SKIN: Intact. Warm to touch. Good cap refill. PSYCHIATRIC: Normal affect and mood. EXTREMITIES: No edema. Good range of motion throughout. LAB FINDINGS: Show white count 11.6, hemoglobin is 12.8, hematocrit 39, and platelets of 154. Chemistry; sodium 140, potassium 4.5, chloride 109, bicarb 26, anion gap of 10, BUN 17, creatinine is 0.81, glucose is 330, calcium is 8.6, LDL 82. IMAGING: None. IMPRESSION: 1. Headache, status post recent back injection on 12/31/2018, now afebrile with mild elevation in white count. 2. Uncontrolled type 2 diabetes, newly diagnosed. 3. Hypertension. 4. Morbid obesity. PLAN: At this time, the patient came in with an elevated white count. He is doing well now, white count is 11. He continues to be evaluated by Neurology, given steroids as well as some other medications for headache relief. He now reports having some minimal headache pain. He was started on IV antibiotics as per ID. It is less likely to be any kind of infectious etiology based on white count and from the consultants and the lab values and vitals. We will give him some diabetic education, continue with Lantus and insulin sliding scale. Hopefully, he can be discharged in the next 1-2 days if cleared by consultants . MD WILEY Jean-Baptiste/MAYURL /[id number]
--- NOTE | 2019-01-03 14:56 | NUR ---
CASE MANAGEMENT ASSESSMENT Motor Vehicles Inspector to bedside to discuss plan of care with patient/family. CM/SW role and care transitions discussed. Anticipated discharge plan discussed along with duration of care. CM/SW discussed patients right to make decisions in care. CM/SW work hours given. Patient lives: with Tiffanie Admit/Transfer: thru ED Hospital/ER visits since last admit: none POA/Emergency contact: daughter Shanda Deshpande [phone] Current/Previous Home Health: none PCP/Follow-up Care: Dr. Au - advised pt to follow up with his MD within 5 days of discharge Current/Previous DME: none Medications (referring to index hospitalization or the first time you were in the hospital) a. Were changes made in your medications when you were in the hospital on [date of index hospitalization]? b. Did you understand the changes? c. Were you able to obtain your new medications right away? d. Were you able to take your medications like the doctor wanted you to? e. Did the hospital give you an accurate, easy to understand list of medications when you left? Scale of 1-10 how comfortable does patient feel with disease management in outpatient settin Other Services: none Employment Status: retired Areas of Concerns: new diabetic Referral Needs: dietary consult Education Needs: diabetes, medical management IMM/JAIME given and signed (if applicable): IMM was given Goal for discharge: home; granddaughter will provide transportation. possible dc tomorrow. CM/SW left business card at the bedside with contact information. Name and number was also written on the patients whiteboard. Patient verbalized understanding of discussion. CM will follow-up with ongoing discharge and transition of care needs.
--- NOTE | 2019-01-03 17:21 | NUR ---
Patient demonstrated using sliding scale to determine dose, cleaning insulin vial, drawing up insulin, and administering insulin subcutaneously.
--- NOTE | 2019-01-03 18:34 | NUR ---
Nutrition Screen Note RD Recommendation for Physician: -Continue current diet. Plan of Care: RD following, monitoring for tolerance and adequacy, provided education. Nutrition reason for involvement: MD Consult- ADA education Primary Diagnose(s): Headache, hyperglycemia PMH: Obesity Ht: 66 in Wt: 226 lb BMI: 36.5 kg/m2 IBW: [address] Assessment: 01/03: 63 YOM admitted for headache and hyperglycemia. Pt was seen d/t consult for DM education. Per chart- pt was newly diagnosed with T2DM. A1c was 9.5. Pt agreed to DM education; provided pt with handouts and healthy tips regarding how to eat correctly when dealing with DM. Emphasized importance of checking sugars, portions sizes, food label and following appropriate carb controlled diet as well as taking DM medications as recommended. Pt reported a good appetite and was seen eating his lunch. Pt denied N/V/C/D, or and chewing/swallowing issues. Chart reviewed. Labs and meds reviewed. Will continue to monitor. Current Diet: 1800 ADA Malnutrition Evaluation (01/03) The patient does not meet criteria for a specified degree of malnutrition at this time. Will re-evaluate at follow-up as appropriate. Diet Education Needs Assessment: Diet education indicated, pt was agreeable. Nutrition Education Learner(s): pt Time spent: 30 min Barriers: No barriers identified. Cultural/Language Modifications: No cultural/language modifications noted. Readiness: Pt eager to learn. Method: Provided pt with Diabetes Education Topics: Carbohydrate exchanges, Carbohydrate counting handouts, Reading the nutrition label, meal planning tips, exercise tips, servings/portion sizes, S/S of hypo & hyperglycemia Understanding/Compliance: Expect good understanding/compliance from pt. All questions have been answered. Nutrition Care Level: Low Signed: Anne-Marie Tobias, MS, RD, LD
--- NOTE | 2019-01-03 19:10 | NUR ---
REPORT TAKEN FROM AM RN.WALKING ROUNDS DONE.
[2019-01-03] MEDS: HYDRALAZINE HCL 20 MG/ML VIAL IV PRN (20:21)
[2019-01-03] MEDS: ACETAMINOPHEN 325 MG TAB PO PRN (20:21)
[2019-01-03] MEDS: SIMVASTATIN 20 MG TAB PO SCH (20:21)
[2019-01-03] MEDS: CEFTRIAXONE SOD 1 GM/NS 50 ML 50 ML IV SCH (20:22)
--- NOTE | 2019-01-03 21:00 | NUR ---
Asessment done.no resp.distress.headache voiced 01/12.Tylenol 650 mg po given.bp noted 185/87.hydralazine 10 mg iv given.bed alarm on.bed locked and in lowest position.phone and call light within reach.instructed to call for assistance as needed.
--- NOTE | 2019-01-03 23:31 | NUR ---
Pt is comfortably resting in the bed.
[2019-01-04 00:44] VITALS: BP 138/65
[2019-01-04 04:00] VITALS: BP 136/65
[2019-01-04 05:50] LABS: BASOPHILS % 0.1 % (0.0-1.0); HEMATOCRIT 38.1 % (38.2-49.6); HEMOGLOBIN 12.8 g/dL (14.0-18.0); LYMPHOCYTES # (AUTO) 2.4 (1.0-3.2); LYMPHOCYTES % 27.8 % (18.0-39.1); MEAN CORPUSCULAR HEMOGLOBIN 29.3 pg (28-32); MEAN CORPUSCULAR HGB CONC 33.6 g/dL (31-35); MEAN CORPUSCULAR VOLUME 87.2 fL (81-99); MONOCYTES # (AUTO) 0.8 (0.2-0.8); MONOCYTES % 8.9 % (4.4-11.3); NEUTROPHILS # (AUTO) 5.5 (2.1-6.9); NEUTROPHILS % 62.6 % (38.7-80.0); PLATELET COUNT 159 x10e3/uL (140-360); RED BLOOD COUNT 4.37 x10e6/uL (4.3-5.7)
[2019-01-04 06:07] LABS: ANION GAP 7.8 mmol/L (8-16); BLOOD UREA NITROGEN 18 mg/dL (7-26); BUN/CREATININE RATIO 24 (6-25); CALCIUM 8.4 mg/dL (8.4-10.2); CARBON DIOXIDE 28 mmol/L (22-29); CHLORIDE 106 mmol/L (98-107); CREATININE, SERUM 0.74 mg/dL (0.72-1.25); EST GLOMERULAR FILTRATION RATE > 60 ML/MIN (60-); GLUCOSE 116 mg/dL (74-118); POTASSIUM 3.8 mmol/L (3.5-5.1); SODIUM 138 mmol/L (136-145)
--- NOTE | 2019-01-04 07:08 | NUR ---
Received patient in report at this time. Patient is resting in bed. No pain reported. No S&S of distress noted at this time.
[2019-01-04] MEDS: INSULIN REGULAR, HUMAN 100 UNIT/1 ML 3ML VIAL SQ SCH ×2 (07:30→12:27)
[2019-01-04 08:10] VITALS: BP 183/78
--- NOTE | 2019-01-04 08:30 | NUR ---
Patient is awake and A&Ox3. Lung sounds clear. Bowel sounds active. Skin intact. No swelling noted. R FA 20g IV asymptomatic, intact, and patent. Minimal pain reported in head, 2/10, no pain meds requested. Patient is ambulatory and moves between bed and chair often. Call light in reach. Will continue to monitor.
[2019-01-04] MEDS: SERTRALINE HCL 50 MG TAB PO SCH (08:36)
[2019-01-04] MEDS: PANTOPRAZOLE SOD 40 MG TABEC PO SCH (08:36)
[2019-01-04] MEDS: LISINOPRIL 10 MG TAB PO SCH (08:36)
[2019-01-04] MEDS: INSULIN GLARGINE 100 UNITS/ML VIAL SQ SCH (08:37)
[2019-01-04] MEDS: HYDRALAZINE HCL 20 MG/ML VIAL IV PRN (08:37)
--- NOTE | 2019-01-04 11:19 | NUR ---
Call placed to Dr. Trejo. Patient c/o itching allover. patient states he takes an allergy pill and he would like if we could get it renewed.
[2019-01-04] MEDS ORDERED: LORATADINE 10 MG TAB PO SCH (12:00)
[2019-01-04] MEDS: ACETAMINOPHEN 325 MG TAB PO PRN (12:03)
[2019-01-04 12:39] VITALS: BP 137/67
[2019-01-04 12:44] VITALS: BP 137/67
[2019-01-04] MEDS ORDERED: TYLENOL WITH C1 EACH PO (14:45)
[2019-01-04] MEDS ORDERED: LEVEMIR100 UNIT/1 SC (14:51)
[2019-01-04] MEDS ORDERED: HUMALOG100 UNIT/3 SC (14:52)
--- NOTE | 2019-01-04 15:05 | NUR ---
R AC 20g IV removed at this time. Catheter tip intact. Pressure dressing applied.
--- NOTE | 2019-01-04 15:37 | NUR ---
Patient discharged at this time. Walked to car, accompanied by staff, refused wheelchair. Discharge packet given. Stressed importance of following up with PCP as insulin rx is only for one month, and insulin coverage will be needed past that. Explained Levamir and Humalog insulins and flexpens with instruction to ask pharmacist to show him how the flexpens work. Emphasized importance of diet and exercise, with activity as tolerated. Patient verbalized understanding. No pain or S&S of distress noted.
[2019-01-04] MEDS ORDERED: NYSTATIN 100,000 UNITS/GM CRM 30GM TUBE TOP SCH (17:00)
--- NOTE | 2019-01-05 07:06 | Discharge Summary ---
FINAL DISCHARGE DIAGNOSES: 1. Headache from status post recent back injection for pain on 12/31/2018, afebrile, normal white count, now improved and cleared for discharge by ID. 2. Uncontrolled type 2 diabetes, newly diagnosed. 3. Hypertension. 4. Morbid obesity. CONSULTANTS: Neurology and ID. PHYSICAL EXAMINATION: VITAL SIGNS: Temperature is 98.1, pulse 74, respiratory rate is 18, blood pressure 137/67, and pulse ox 96% on room air. LAB FINDINGS: Show white count 8.7, hemoglobin 12.8, hematocrit is 38.1, and platelets of 159. Chemistry, sodium 138, potassium 3.8, chloride is 106, bicarb 28, anion gap is 7.8, BUN is 18, creatinine 0.74, glucose is 116. Hemoglobin A1c is 9.5. Calcium is 8.4, LDL is 82. Microbiology, none. IMAGING STUDIES: CT brain found to be negative. Chest x-ray is found to be negative. HOSPITAL COURSE: This is a 63-year-old male, morbidly obese, who came from an outside ER with complaints of severe headache after having recent lumbar injection for chronic pain that was performed on the day prior to arrival to the ED. The patient was then transferred here due to elevated glucose levels of greater than 400 and severe headache. In relation to his glucose levels, his A1c was elevated. He was started on long-acting Lantus as well as premeal insulin. The patient was educated appropriately while here in the hospital in which he was educated on how to give insulin to himself. He did very well with no complaints. He was discharged on long-acting insulin as well as short-acting insulin as well and was advised to follow up with his PCP. In relation to his headache, ID was consulted to evaluate for possible infection. His white count has been normal throughout. On the day of discharge, he has been afebrile, he had no other complaints, and there was no source or obvious findings of any source of infection. The patient was on IV antibiotics, but cleared by ID for discharge with no oral antibiotics. In relation to his headache, he also had Neurology consulted and evaluated. Imaging study was found to be negative. The patient was given some steroids as well as other medications for his headache, which resolved while here in the hospital. The patient had been cleared by both ID and Neurology for discharge home. The patient's headache resolved, glucose levels are better controlled now. The patient is doing well with no other issues. On the day of discharge, vital signs stable, labs remained stable. Patient seen, evaluated, examined thoroughly on the day of discharge. No other complaints. The patient verbalized understanding and agreed to plan of care to follow up accordingly as an outpatient with primary care physician in 1 week for further evaluation and management. MEDICATIONS: See med reconciliation form including Tylenol No.3 for pain, long-acting and premeal Humalog. DISPOSITION: Home. CONDITION: Stable. DIET: Diabetic. In the event of any worsening symptoms, the patient was advised to come back to the ED for further evaluation. Discharge summary took greater than 35 minutes. MD WILEY Jean-Baptiste/IFRAH /[id number]
== END 2019-01-04 15:37 | disposition home or self-care (01) | DRG 103 ==
LOC: FSED 10:13 → ERHOLD 13:15 → MED/SURG 15:35
PROVIDERS: ADMIT Internal Medicine; ATTEND Internal Medicine
DX: G97.1 Other reaction to spinal and lumbar puncture (principal); E11.65 Type 2 diabetes mellitus with hyperglycemia; E66.01 Morbid (severe) obesity due to excess calories; Z68.36 Body mass index [BMI] 36.0-36.9, adult; G43.111 Migraine with aura, intractable, with status migrainosus; D72.829 Elevated white blood cell count, unspecified; E78.5 Hyperlipidemia, unspecified; I10 Essential (primary) hypertension; G89.29 Other chronic pain
CPT/HCPCS: 36415; 70450; 71046; 80048; 80053; 80061; 81003; 82948; 83036; 84484; 85025; 85610; 87400; 93005; 99284; J0360; J0696; J1815; J1885; J2405; J2550; J2930; J7030

== ENCOUNTER 2024-01-30 16:20 | Emergency (ER) | payer BC, MEDICARE ==
[~2024-01-30] VITALS: Ht 165.1 cm; Wt 102.5 kg
[~2024-01-30 16:20] MED LIST: AMBIEN10 MG PO; HUMALOG100 UNIT/3 SC; LANZOPRAZOLE PO; LEVEMIR100 UNIT/1 SC; LISINOPRIL10 MG PO; SIMVASTATIN20 MG PO; TYLENOL WITH C1 EACH PO; ZOLOFT50 MG PO
[2024-01-30 18:40] VITALS: BP 142/80; PULSE 74; RESP 16; TEMP 98; O2SAT 97
== END 2024-01-30 18:43 | disposition home or self-care (01) ==
LOC: ER 17:39
DX: M25.562 Pain in left knee (principal); M25.561 Pain in right knee; W18.39XA Other fall on same level, initial encounter; Y93.01 Activity, walking, marching and hiking; Y92.89 Other specified places as the place of occurrence of the external cause; I10 Essential (primary) hypertension; E78.5 Hyperlipidemia, unspecified; M54.9 Dorsalgia, unspecified; G89.29 Other chronic pain
CPT/HCPCS: 99283

== ENCOUNTER 2024-07-04 09:02 | Day surgery (SDC) | payer MEDICARE ==
[2024-06-30 08:57] LABS: BASOPHILS # (AUTO) 0.1 (0.0-0.1); BASOPHILS % 0.6 % (0.0-1.0); EOSINOPHILS # (AUTO) 0.2 (0.0-0.4); EOSINOPHILS % 2.8 % (0.0-6.0); HEMATOCRIT 31.4 % (38.2-49.6); HEMOGLOBIN 10.1 g/dL (14.0-18.0); LYMPHOCYTES # (AUTO) 2.1 (1.0-3.2); LYMPHOCYTES % 27.1 % (18.0-39.1); MEAN CORPUSCULAR HEMOGLOBIN 28.3 pg (28-32); MEAN CORPUSCULAR HGB CONC 32.2 g/dL (31-35); MONOCYTES # (AUTO) 0.6 (0.2-0.8); MONOCYTES % 7.8 % (4.4-11.3); NEUTROPHILS # (AUTO) 4.8 (2.1-6.9); NEUTROPHILS % 61.4 % (38.7-80.0); PLATELET COUNT 216 x10e3/uL (140-360); RED BLOOD COUNT 3.57 x10e6/uL (4.3-5.7); RED CELL DISTRIBUTION WIDTH 14.1 % (11.7-14.4); WHITE BLOOD COUNT 7.85 x10e3/uL (4.8-10.8)
[2024-06-30 09:10] LABS: INR 0.96; PROTHROMBIN TIME 13.3 seconds (11.9-14.5)
[2024-06-30 09:20] LABS: ALBUMIN 2.7 g/dL (3.5-5.0); ALBUMIN/GLOBULIN RATIO 0.9 (0.8-2.0); ANION GAP 12.5 mmol/L (8-16); BILIRUBIN,TOTAL 0.2 mg/dL (0.2-1.2); CALCIUM 8.3 mg/dL (8.4-10.2); CREATININE, SERUM 1.48 mg/dL (0.72-1.25); POTASSIUM 3.5 mmol/L (3.5-5.1); TOTAL PROTEIN 5.7 g/dL (6.5-8.1)
[2024-07-04] VITALS (8 sets, daily range): BP systolic 176–195; BP diastolic 66–95; PULSE 54–63; RESP 12; TEMP 97.4; O2SAT 100
[~2024-07-04] VITALS: Ht 160 cm; Wt 96.2 kg
[~2024-07-04 09:02] MED LIST changes: +ALBUTEROL2.5 MG/3 M INH; +ASPIRIN81 MG PO; +BUDESONIDE0.25 MG/2 INH; +BUMETANIDE2 MG PO; +COREG6.25 MG PO; +ERGOCALCIFEROL1 GM PO; +FEROSUL325 MG PO; +FLOMAX0.4 MG PO; +FLONASE ALLERG9.9 ML INH; +HEPARIN SOD (PORCINE) 1000 UNIT/ML 30ML ONE; +HEPARIN SOD/SOD CHLORIDE 2,000 ML ONE; +IOPAMIDOL 370 MG/ML 100 ML INFUS..BTL INJ ONE; +LATANOPROST2.5 ML OP; +LEVEMIR100 UNIT/1 SQ; +LIDOCAINE HCL 2% LOCAL 20 ML VIAL ONE; +METFORMIN HCL500 MG PO; +METOCLOPRAM5 MG/5 ML PO; +METRONIDAZOLE250 MG PO; +NEURONTIN100 MG PO; +NITROGLYCERIN/D5W 200 MCG/ML 250 ML ONE; +OXYBUTYNIN CHLOR5 M1 PO; +PANTOPRAZOLE SO40 MG PO; +POTASSIUM CHLO20 ME1 PO; +PRAVASTATIN SOD10 MG PO; +PROAIR DIGIHAL90 MCG INH; +PROCARDIA XL30 MG PO; +SODIUM CHLORIDE 0.9% 1000ML 1,000 ML ONE; +TRESIBA FL100 UNIT/1 SQ; +VERAPAMIL HCL 2.5 MG/ML 2 ML VIAL ONE
[2024-07-04] MEDS: ALPRAZOLAM 0.5 MG TAB ONE (10:23)
[2024-07-04] MEDS: DIPHENHYDRAMINE HCL 25 MG CAP ONE (10:24)
[2024-07-04] MEDS ORDERED: MIDAZOLAM HCL 2 MG/2 ML VIAL ONE (10:51)
[2024-07-04] MEDS ORDERED: FENTANYL CITRATE/PF 100MCG/2 ML INJ ONE (10:51)
[2024-07-04] MEDS ORDERED: HEPARIN SOD/SOD CHLORIDE 1,000 ML ONE (11:13)
[2024-07-04] MEDS ORDERED: HYDRALAZINE HCL 20 MG/ML VIAL ONE (11:14)
== END 2024-07-04 13:15 | disposition home or self-care (01) ==
LOC: CATH LAB 09:02
PROVIDERS: ATTEND Internal Medicine
DX: I25.118 Atherosclerotic heart disease of native coronary artery with other forms of angina pectoris (principal); I11.0 Hypertensive heart disease with heart failure; I50.9 Heart failure, unspecified; R94.39 Abnormal result of other cardiovascular function study; R94.31 Abnormal electrocardiogram [ECG] [EKG]; E78.5 Hyperlipidemia, unspecified; J44.9 Chronic obstructive pulmonary disease, unspecified; E13.69 Other specified diabetes mellitus with other specified complication; Z01.812 Encounter for preprocedural laboratory examination; Z79.4 Long term (current) use of insulin; Z68.34 Body mass index [BMI] 34.0-34.9, adult; Z82.49 Family history of ischemic heart disease and other diseases of the circulatory system; Z83.3 Family history of diabetes mellitus
CPT/HCPCS: 36415 ×2; 80053; 82948; 83880; 85025; 85610; 93458; C1887; J0360; J1644; J2001; J2250; J3010; J7030; Q9967; 99152; 99153